=== PATIENT | female | born 1935 | race African-American/Black ===

== ENCOUNTER → 2020-10-25 13:58 | Outpatient (CLI) | payer MEDICARE, OTHER, MEDICAID, SELFPAY ==
[2020-10-26 13:12] LABS: Covid-19 Nasal PCR Sendout Lex NOT DETECTED
== END ==
PROVIDERS: Visit Provider Family Medicine
DX: Z03.818 Encounter for observation for suspected exposure to other biological agents ruled out (principal)
CPT/HCPCS: U0004

== ENCOUNTER 2020-11-17 01:00 | Inpatient (IN) | payer MEDICARE, OTHER, MEDICAID, SELFPAY ==
[2020-11-17] VITALS (20 sets, daily range): BP systolic 114–204; BP diastolic 38–85; PULSE 69–86; RESP 16–24; TEMP 35.9–38.1; O2SAT 72–99; BMI 25.4; BMI 24.8; BMI 25.0
--- NOTE | 2020-11-17 01:33 | ECG_ITS ---
APPROVED REPORT Exam: Resting ECG HR:69 bpm ECG Measurements Heart Rate 69 AXES SD 176 P 75 QRSd 78 QRS -26 QT 404 T 26 QTc 432 Conclusion Normal sinus rhythm Nonspecific T wave abnormality Abnormal ECG Electronically signed by : Amaury Ritter, 11/17/2020 07:16:46
--- NOTE | 2020-11-17 01:33 | XR_ITS ---
PROCEDURE: XR CHEST PORTABLE CLINICAL HISTORY: SOB Shortness of breath COMPARISON: No exams were available for comparison FINDINGS: Cardiomegaly without failure. Patchy increased density is present in the right upper and right lower lobe consistent with pneumonia. Left lung is clear. Old left humeral neck fracture IMPRESSION: Right upper and right lower lobe pneumonia Dictated by: Shad Keating MD 11/17/2020 05:56 Shad Keating MD in [place] 11/17/2020 05:56
--- NOTE | 2020-11-17 01:36 | PC.NURSE ---
Patient arrived via EMS to Trauma 4, assessmant complete. #16 left AC, Labs obtained. #16 catheter inserted U/A obtined. o2 at 2 liters VS stable side rails up x 2
--- NOTE | 2020-11-17 01:51 | HMH.EDSOB ---
ED Disposition Clinical Impression: HCAP (healthcare-associated pneumonia), COVID-19 virus detected, Renal insufficiency, Elevated troponin HTN (hypertension) Qualifiers: Hypertension type: unspecified Qualified Code(s): I10 - Essential (primary) hypertension Disposition: Admitted As Inpatient Condition on Discharge: Serious Referrals: Eyal Gomez [Primary Care Provider] - - Critical Care Critical Care Time: No Attestation: On , the high probability of a clinically significant, sudden or life threatening deterioration of the following system(s) required my full and direct attention, intervention and personal management. The time I documented below is in addition to time spent performing reported procedures but includes the following listed in this critical care notation. Medical Decision Making - Medical Records Medical records reviewed: Yes: I reviewed the patient's medical records. - Chao Inquiry Pt receiving controlled substance: No Vital Signs: 11/17/20 01:01 11/17/20 01:02 11/17/20 01:31 Temperature 99 F 99.1 F Temperature Source Oral Oral Pulse Rate [Right Brachial] 72 73 74 Respiratory Rate 20 18 20 Blood Pressure [Right Arm] 130/54 L 130/54 L 126/38 L Blood Pressure Mean [Right Arm] 79 79 67 Blood Pressure Source [Right Arm] Automatic Cuff Automatic Cuff Automatic Cuff Blood Pressure Position [Right Arm] Supine Supine Supine 02 Sat by Pulse Oximetry 72 L 85 L 87 L Oxygen Delivery Method Room Air Oxygen Flow Rate (LPM) 11/17/20 02:01 11/17/20 02:31 11/17/20 03:00 Temperature Temperature Source Pulse Rate [Right Brachial] 70 69 86 Respiratory Rate 20 20 18 Blood Pressure [Right Arm] 114/39 L 125/43 L 137/57 L Blood Pressure Mean [Right Arm] 64 70 83 Blood Pressure Source [Right Arm] Automatic Cuff Automatic Cuff Blood Pressure Position [Right Arm] Supine Supine 02 Sat by Pulse Oximetry 87 L 91 L 84 L Oxygen Delivery Method Nasal Cannula Nasal Cannula Venturi Mask Oxygen Flow Rate (LPM) 2 2 11/17/20 03:30 11/17/20 04:00 11/17/20 04:30 Temperature Temperature Source Pulse Rate [Right Brachial] 84 78 78 Respiratory Rate 17 17 16 Blood Pressure [Right Arm] 194/66 H 203/66 H 187/64 H Blood Pressure Mean [Right Arm] 108 111 105 Blood Pressure Source [Right Arm] Automatic Cuff Automatic Cuff Automatic Cuff Blood Pressure Position [Right Arm] Supine Supine Supine 02 Sat by Pulse Oximetry 81 L 97 98 Oxygen Delivery Method Venturi Mask Venturi Mask Venturi Mask Oxygen Flow Rate (LPM) 11/17/20 05:00 11/17/20 05:30 11/17/20 06:00 Temperature Temperature Source Pulse Rate [Right Brachial] 76 78 74 Respiratory Rate 16 17 18 Blood Pressure [Right Arm] 193/72 H 185/64 H 204/66 H Blood Pressure Mean [Right Arm] 112 104 112 Blood Pressure Source [Right Arm] Automatic Cuff Automatic Cuff Automatic Cuff Blood Pressure Position [Right Arm] Supine Supine Supine 02 Sat by Pulse Oximetry 99 98 97 Oxygen Delivery Method Venturi Mask Venturi Mask Venturi Mask Oxygen Flow Rate (LPM) 11/17/20 06:30 Temperature Temperature Source Pulse Rate [Right Brachial] 84 Respiratory Rate 17 Blood Pressure [Right Arm] 201/85 H Blood Pressure Mean [Right Arm] 123 Blood Pressure Source [Right Arm] Automatic Cuff Blood Pressure Position [Right Arm] Supine 02 Sat by Pulse Oximetry 89 L Oxygen Delivery Method Venturi Mask Oxygen Flow Rate (LPM) - Lab Data Lab results reviewed: Yes: I reviewed the patient's lab results. Lab Results 11/17/20 01:10: WBC 13.4 H, RBC 3.75 L, Hgb 10.6 L, Hct 35.3 L, MCV 94.2, MCH 28.4, MCHC 30.1 L, RDW 16.9, Plt Count 339, MPV 8.9, Neut % (Auto) 86.3 H, Lymph % (Auto) 7.3 L, [place] % (Auto) 5.3, Eos % (Auto) 0.5, Baso % (Auto) 0.6, Neut # (Auto) 11.6 H, Lymph # (Auto) 1.0, [place] # (Auto) 0.7, Eos # (Auto) 0.1, Baso # (Auto) 0.1, Total Counted 100, Neutrophils % (Manual) 85 H, Lymphocytes % (Manual) 9 L, Monocytes % (Manual) 6, Platelet Estimate Eli
[2020-11-17 02:02] LABS: Microscopic,Cath URINE MICROSCOPIC (MICROSCOPIC)
[2020-11-17 02:11] LABS: Basophils # 0.1 K/mm3 (0-0.2); Basophils % 0.6 % (0.1-2.0); Eosinophils # 0.1 K/mm3 (0.0-0.4); Eosinophils % 0.5 % (0.1-12.0); Hematocrit 35.3 % (37.0-47.0); Hemoglobin 10.6 g/dL (12.2-16.2); Lymphocytes % 7.3 % (10-50); Mean Corpuscular HGB Conc 30.1 g/dL (31.8-35.4); Mean Corpuscular Hemoglobin 28.4 pg (27.0-31.2); Mean Corpuscular Volume 94.2 fl (81-99); Mean Platelet Volume 8.9 fl (7.4-10.4); Monocytes # 0.7 K/mm3 (0.1-1.0); Monocytes % 5.3 % (1.7-9.3); Neutrophils # 11.6 K/mm3 (1.8-7.8); Neutrophils % 86.3 % (37.0-80.0); Platelet Count 339 K/mm3 (142-424); Red Blood Count 3.75 M/mm3 (4.20-5.40); Red Cell Distribution Width 16.9 % (11.5-17.5); White Blood Count 13.4 K/mm3 (4.8-10.8)
[2020-11-17 02:13] LABS: Alanine Aminotransferase 13 U/L (12-78); Albumin Level 3.7 g/dl (3.5-5.0); Albumin/Globulin Ratio 1.2 (1.1-1.8); Alkaline Phosphatase 48 U/L (38-126); Anion Gap 13.6 mEq/L (5-15); Aspartate Amino Transferase 50 U/L (14-36); Bilirubin,Total 0.7 mg/dl (0.2-1.3); Blood Urea Nitrogen 34 mg/dl (7-17); Carbon Dioxide 26 mmol/L (22.0-30.0); Chloride 102 mmol/L (98-107); Creatinine Clearance Estimated 20 mL/min (50-200); Estimated Glomerular Filt Rate 24 ml/min (>60); GFR (African American) 29 ML/MIN (>60); Globulin 3.2 g/dL (1.3-3.2); Glucose 77 mg/dl (74-100); Potassium 4.6 mmoL/L (3.5-5.1); Sodium 137 mmol/L (136-145); Total Protein,Serum 6.9 g/dl (6.3-8.2)
[2020-11-17 02:14] LABS: Appearance,Urine/Cath CLEAR (Clear); Bilirubin,Cath Negative (Negative); Blood, Urine/Cath TRACE-I (Negative); Color,Urine/Cath YELLOW (Yellow); Glucose,Urine/Cath (UA) Negative (Negative); Ketones,Urine/Cath TRACE (Negative); Lactic Acid 0.9 mmol/L (0.7-2.1); Leukocyte Esterase,Cath Negative (Negative); Nitrate,Cath Negative (Negative); PH,Urine/Cath 5.5 (5.0-8.5); Protein,Urine/Cath 2+ (Negative); Specific Gravity, Urine/Cath >= 1.030 (1.005-1.030); Urobilinogen,Cath 0.2 EU/dl (0.2)
[2020-11-17 02:18] LABS: MANUAL DIFFERENTIAL MANUAL DIFFERENTIAL (MANUAL DIFF)
[2020-11-17 02:23] LABS: NT Pro Brain Natriuretic Pep. 2610 pg/mL (0-450)
[2020-11-17 02:26] LABS: Troponin I 0.55 ng/ml (0.00-0.034)
[2020-11-17 02:33] LABS: Coronavirus 19 IgG Antibody Negative (Negative); Coronavirus 19 IgM Antibody Negative (Negative)
[2020-11-17 02:42] LABS: WBC,Urine/Cath Occasional #/hpf (0-3)
[2020-11-17 02:43] LABS: Amorphous Sediment,Ur/Cath 1+ /lpf; Bacteria,Urine/Cath 1+ /lpf
--- NOTE | 2020-11-17 02:47 | CT_ITS ---
PROCEDURE: CT CHEST WO CON De the CLINICAL INDICATION: shortness of breath COMPARISON: No exams were available for comparison TECHNIQUE: Axial images obtained with sagittal and coronal reformats. All CT scans at the facility use one or more dose reduction, viz: automated exposure control, ma/kV adjustment per patient size (including targeted exams where dose is matched to indication, i.e. head), or iterative reconstruction technique. FINDINGS: There is cardiomegaly. Coronary artery calcifications are present. Dense consolidation is present in both upper and lower lobes right more extensive than left. In the right upper lobe there is a spiculated density at 1.4 cm. There are several cystic areas in the right upper and right lower lobe. No effusions are evident. No acute bony anomalies. IMPRESSION: 1. Extensive bilateral pneumonia. 2. Spiculated nodule right apex measuring 1.4 cm suspicious for neoplasm. Convalescent follow-up suggested Dictated by: Shad Keating MD 11/17/2020 06:07 Shad Keating MD in [place] 11/17/2020 06:07
[2020-11-17 02:54] LABS: ABG Base Excess -5.8 mmol/L (-2.4-2.3); ABG HCO3 19.4 mmhg (22.0-26.0); ABG Oxygen Saturation 82 % (90-100); ABG PCO2 34.2 mmhg (35.0-45.0); ABG PH 7.37 mmol/L (7.35-7.45); ABG TCO2 20.5 mmhg (23-27); Allen's Test Y; Oxygen 3 %
[2020-11-17 02:55] LABS: ABG PO2 48.5 mmhg (80-100); Source R/R
[2020-11-17 03:11] LABS: Lymphocytes % 9 % (10-50); Monocytes % 6 % (2-9); Neutrophils % 85 % (42-76); Total Cells Counted 100
[2020-11-17 03:12] LABS: Ovalocytes 1+; Platelet Estimate Normal; Stomatocytes 1+; Target Cells 1+
--- NOTE | 2020-11-17 03:46 | PC.NURSE ---
pt back from CT
[2020-11-17 04:00] LABS: Adenovirus,PCR Not Detected (NotDetected); Bordetella Pertussis Not Detected (NotDetected); Chlamydophila Pneumoniae, PCR Not Detected (NotDetected); Coronavirus 229E Not Detected (NotDetected); Coronavirus NL63 Not Detected (NotDetected); Coronavirus OC43 Not Detected (NotDetected); Coronovirus HKU1,PCR Not Detected (NotDetected); Human Metapneumovirus Not Detected (NotDetected); Influenza A, PCR Not Detected (NotDetected); Influenza AH1, 2009 Not Detected (NotDetected); Influenza AH1, PCR Not Detected (NotDetected); Influenza AH3,PCR Not Detected (NotDetected); Influenza B, PCR Not Detected (NotDetected); Mycoplasma Pneumoniae, PCR Not Detected (NotDetected); Parainfluenza 1, PCR Not Detected (NotDetected); Parainfluenza 2, PCR Not Detected (NotDetected); Parainfluenza 3, PCR Not Detected (NotDetected); Parainfluenza 4, PCR Not Detected (NotDetected); Respiratory Syncytial Virus Not Detected (NotDetected); Rhinovirus/Enterovirus Not Detected (NotDetected)
[2020-11-17 05:47] LABS: Coronavirus 19, PCR Detected (NotDetected)
[2020-11-17 05:51] LABS: Troponin I 0.44 ng/ml (0.00-0.034)
--- NOTE | 2020-11-17 07:36 | PC.NURSE ---
urine output 1500cc
--- NOTE | 2020-11-17 07:42 | PC.NURSE ---
report called to moni marcos
--- NOTE | 2020-11-17 08:45 | HMH.HP ---
*Admission Date: 11/17/20 <Chely Torres 11/17/20 08:51> *Chief complaint: shortness of breath <Chely Torres 11/17/20 09:29> *History of present illness: Ms. Barcenas is an 85yo female who was transported from [facility] with low oxygen saturations and fever. She had a covid test pending at the [facility] but was tested upon presentation to the ER and found to have Covid along with pneumonia. Her white blood cell count was elevated, her troponins were elevated as was her BNP. She had renal insufficiency. Her chest CT showed extensive bilateral pneumonia and a nodule in the right apex suspicious for neoplasm. She was started on levaquin and given dexamethasone and lasix in the ER. She was admitted for further evaluation and treatment. <Chely Torres 11/17/20 09:29> [facility] History I have reviewed the patient's past medical history: Yes <Chely Torres 11/17/20 08:51> Medical History: Denies:: Cancer, Diabetes Mellitus Type 1, Diabetes Mellitus Type 2, Hypertension, MRSA <Chely Torres 11/17/20 09:29> *Have you ever received a pneumonia vaccine?: Yes <Chely Torres 11/17/20 08:51> *Have you received a flu vaccine this season?: No <Chely Torres 11/17/20 08:51> Other Medical History: Reports: Arthritis <Chely Torres 11/17/20 09:29> Amputation: No <Chely Torres 11/17/20 08:51> - *Social History Smoking Status: Former smoker <Chely Torres 11/17/20 09:29> Alcohol Intake: former <Chely Torres 11/17/20 08:51> Alcohol Intake Frequency:: a few times a month <Chely Torres 11/17/20 08:51> *Occupational Status:: unemployed <Chely Torres 11/17/20 08:51> *Travel in the last 8 weeks: None <Chely Torres 11/17/20 08:51> Family Hx:: Cancer <Chely Torres 11/17/20 09:29> Review of Systems - Constitutional Reports fever(s), Reports weakness, Denies chills <BrianChely 11/17/20 09:29> - Eyes Denies blurry vision, Denies double vision <Chely Torres 11/17/20 09:29> - ENT Denies nasal congestion, Denies sore throat <Chely Torres 11/17/20 09:29> - *Cardiovascular Reports shortness of breath, Denies chest pain <Chely Torres 11/17/20 09:29> - *Respiratory Reports cough, Reports shortness of breath <Chely Torres 11/17/20 09:29> - *Gastrointestinal Denies abdominal pain, Denies loose stools, Denies nausea, Denies vomiting <Chely Torres 11/17/20 09:29> - *Genitourinary Denies difficulty urinating, Denies painful urination <Chely Torres 11/17/20 09:29> - *Musculoskeletal Reports joint pain (arthritis) <Chely Torres 11/17/20 09:29> - *Neurologic Reports weakness, Denies dizziness, Denies localized weakness, Denies headache(s), Denies seizure-like activity <Chely Torres 11/17/20 09:29> Meds Home Medications Medication Instructions Recorded Confirmed Type Acetaminophen [Tylenol 500mg 1,000 mg PO Q6 11/17/20 11/17/20 History tablet] Alendronate Sodium [Alendronate 40 mg PO WEEKLY 11/17/20 11/17/20 History 40mg Tablet] Aspirin [Aspirin 81mg chewable 81 mg PO DAILY 11/17/20 11/17/20 History tab] Calcium Carbonate/Vitamin D3 1 each PO BID 11/17/20 11/17/20 History [Calcium 600-Vit D3 400 Tablet] Docusate Sodium [Docusate Sodium 100 mg PO DAILY 11/17/20 11/17/20 History 100mg Cap] Folic Acid [Folic Acid 1mg tablet] 1 mg PO DAILY 11/17/20 11/17/20 History Hydroxychloroquine Sulfate 200 mg PO DAILY 11/17/20 11/17/20 History [Plaquenil 200mg tablet] Lactulose [Lactulose 20gm/30ml 15 ml PO DAILY 11/17/20 11/17/20 History Oral Soln] Loratadine [Claritin 10mg 10 mg PO DAILY 11/17/20 11/17/20 History Tablet] Losartan Potassium 25 mg PO DAILY 11/17/20 11/17/20 History Omeprazole [Omeprazole 40mg 40 mg PO DAILY 11/17/20 11/17/20 History Capsule] Potassium Chloride 10 meq PO DAILY 11/17/20 11/17/20 History hydroCHLOROthiazide [HCTZ 25mg 25 mg PO DAILY 11/17/20 11/17/20 History tab]
--- NOTE | 2020-11-17 09:52 | PC.NURSE ---
patient placed on 4 l nasal cannula sating 91-92%. will continue to monitor. and wean as appropriate.
--- NOTE | 2020-11-17 10:35 | SW/DCPLANNER ---
Addendum entered by Meli Partida 11/23/20 07:02: PATIENT REMAINS IN THE COVID UNIT AND IS ON BIPAP... SHE DOES HAVE A BED SECURED AT [facility].. PATIENT NOT CURRENTLY READY FOR ANY DISPOSITION AT THIS TIME... WILL KEEP IN TOUCH WITH THE FACILITY AND LET THEM KNOW WHEN SHE IS READY TO COME BACK.. Original Note: This patient currently resides at [facility]. I have spoke with Omar from [facility] and she has stated this patient is SNF level of care. If patient is ready over the holiday or weekend they can accept this patient back. I will continue to follow up with Omar from [facility].
--- NOTE | 2020-11-17 10:51 | P.CONPHA_ITS ---
[facility] Pharmacy VTE Monitoring - Patient Demographics Admission date: 11/17/20 Report Date: 11/17/20 Time: 10:51 Allergies/Adverse Reactions: Patient Allergies Penicillins Allergy (Severe, Verified 11/17/20 01:28) Rash procainamide Allergy (Intermediate, Verified 11/17/20 01:30) Rash Height: 1.55 m Weight: 59.619 kg Patient Problems: Current Active Problems HCAP (healthcare-associated pneumonia) (Acute) COVID-19 virus detected (Acute) Renal insufficiency (Chronic) Elevated troponin (Acute) HTN (hypertension) (Chronic) - VTE Risk Labs: VTE Related Lab Results Hgb 10.6 g/dL (12.2-16.2) L 11/17/20 01:10 Hct 35.3 % (37.0-47.0) L 11/17/20 01:10 Plt Count 339 K/mm3 (142-424) 11/17/20 01:10 BUN 34 mg/dl (7-17) H 11/17/20 01:10 Creatinine 2.00 mg/dl (0.52-1.04) H 11/17/20 01:10 Estimated Creat Clear 20 mL/min (50-200) 11/17/20 01:10 Was VTE Risk Assessment Performed: Yes VTE Score: 3 VTE Risk Level: Low Risk - Prophylaxis VTE Prophylaxis Ordered?: Yes Types of VTE Prophylaxis: Pharmacological Pharmacologic Type: Enoxaparin
--- NOTE | 2020-11-17 11:39 | HMH.PHAINT ---
MEDICATION RECONCILIATION COMPLETED ON PATIENT USING MAR FORM SHELTER. -SATYA MOSQUERA, MACARENAD
--- NOTE | 2020-11-17 11:43 | PC.NURSE ---
remdesivir finished. flushed with 30ml of ns via pump. tolerated infusion well
--- NOTE | 2020-11-17 13:51 | PC.NURSE ---
when patient took ascorbic acid pill she got nauseated and puked the pill and water back up
--- NOTE | 2020-11-17 18:44 | PC.NURSE ---
No acute changes since taking pt at approx 1300. Pt alert and oriented and has had no c/o's. Continues on 4 L NC. Have placed call to MIS x 2 in RE to fixing pts phone in room, as it will ring, but phone won't answer. CB in reach. IV in the LAC infiltrated and was changed to a 20 gauge in the RFA with NS at 100 ml/hr. Remains safe. Will cont to mx. VSS
[2020-11-18] VITALS (13 sets, daily range): BP systolic 110–145; BP diastolic 43–80; PULSE 66–96; RESP 16–20; TEMP 35.9–37.2; O2SAT 90–98; BMI 24.5
--- NOTE | 2020-11-18 05:58 | PC.NURSE ---
Pt has been A&O x4 and has slept on and off through the night. At the start of shift, pt was on 4L NC with sats at 90. Around 2129, pt began to need an increase in O2 and Juan Pablo MEDEL was notified. He ordered nebs and gave a sat goal of 88. Pt began to further desat with O2 sats in the mid to low 80s, pt was unsymptomatic and reported no SOA. RT was notified and placed pt on the Vapotherm, with 30L at 90%. O2 sats improved to low 90s and maintained through the night. Lung sounds were diminished with fine crackles in lower lobes. Abd was soft and nontender with bowel sounds in all four quadrants. VSS, call light in reach. No concerns at this time.
[2020-11-18 06:34] LABS: Chloride 103 mmol/L (98-107); Sodium 137 mmol/L (136-145)
[2020-11-18 06:35] LABS: Potassium 3.8 mmoL/L (3.5-5.1)
[2020-11-18 06:37] LABS: Blood Urea Nitrogen 42 mg/dl (7-17); Creatinine Clearance Estimated 26 mL/min (50-200); Estimated Glomerular Filt Rate 33 ml/min (>60); GFR (African American) 40 ML/MIN (>60)
[2020-11-18 06:38] LABS: Anion Gap 14.8 mEq/L (5-15); Carbon Dioxide 23 mmol/L (22.0-30.0); Glucose 114 mg/dl (74-100)
[2020-11-18 06:48] LABS: Basophils # 0.1 K/mm3 (0-0.2); Basophils % 0.2 % (0.1-2.0); Hematocrit 30.9 % (37.0-47.0); Hemoglobin 9.6 g/dL (12.2-16.2); Lymphocytes # 0.8 K/mm3 (0.7-4.5); Lymphocytes % 4.2 % (10-50); Mean Corpuscular HGB Conc 30.9 g/dL (31.8-35.4); Mean Corpuscular Volume 93.7 fl (81-99); Mean Platelet Volume 9.5 fl (7.4-10.4); Monocytes # 0.9 K/mm3 (0.1-1.0); Monocytes % 4.8 % (1.7-9.3); Neutrophils # 17.1 K/mm3 (1.8-7.8); Neutrophils % 90.8 % (37.0-80.0); Platelet Count 363 K/mm3 (142-424); Red Blood Count 3.29 M/mm3 (4.20-5.40); Red Cell Distribution Width 16.9 % (11.5-17.5); White Blood Count 18.8 K/mm3 (4.8-10.8)
[2020-11-18 06:52] LABS: MANUAL DIFFERENTIAL MANUAL DIFFERENTIAL (MANUAL DIFF)
[2020-11-18 07:35] LABS: Calcium 7.8 mg/dl (8.4-10.2)
[2020-11-18 07:44] LABS: Lymphocytes % 6 % (10-50); Monocytes % 5 % (2-9); Neutrophils % 89 % (42-76); Platelet Estimate Normal; RBC Morphology Normal; Total Cells Counted 100
--- NOTE | 2020-11-18 15:22 | PC.NURSE ---
PATIENT A&O X2. PATIENT KNOWS NAME AND . PATIENT LUNGS: COARSE CRACKLES HEARD, PULSES EQUAL. PATIENT SHOWED CONFUSION ON DATE AND WHERE SHE WAS. PATIENT HAS HAD WATERY STOOLS. PATIENT HAS REFUSED TO EAT HER MEALS. THIS RN EDUCATED PATIENT THE IMPORTANCE OF EATING AND DRINKING FOR NUTRITION SUPPORT. PATIENT STATED THAT SHE CAN NOT DRINK COLD THINGS. THIS RN OFFERED HER ROOM TEMP WATER AND PATIENT WAS ABLE TO DRINK IT. NO NEW CONCERNS AT THIS TIME.
--- NOTE | 2020-11-18 18:41 | PC.NURSE ---
PATIENT O2 STATS DROPPED TO 78, THIS RN AND VLADIMIR SALMERON WENT TO PATIENT'S ROOM TO ASSES. PATIENT HAD TAKEN OFF HER VAPOTHERM. THIS RN EDUCATED PATIENT IN REGARDS TO THE IMPORTANCE OF HER KEEPING THE VAPOTHERM IN HER NOSE. PATIENT STATED, IT IS BOTHERING ME. PATIENT VERBALIZED AN UNDERSTANDING AND O2 WAS 93%.
--- NOTE | 2020-11-18 19:02 | PC.NURSE ---
THIS RN WAS INFORMED THAT CARDIAC STRIPS ARE NOT PULLING TO THE MAIN MONITOR AND UNABLE TO PRINT. THIS RN ALONG WITH FAVIOLA GILBERT SHOOTED AND WERE ABLE TO PRINT A STRIP AT 1858.
[2020-11-19] VITALS (14 sets, daily range): BP systolic 120–148; BP diastolic 47–66; PULSE 70–90; RESP 18–24; TEMP 36.7–37.4; O2SAT 85–96; BMI 23.8
--- NOTE | 2020-11-19 03:15 | PC.NURSE ---
No acute changes this shift. Pt has slept well. Has not c/o any soa or discomfort. Pt remains on vapotherm 30 L @ 75% with sats of low 90s. Pt has had some periods of desaturation while sleeping as low as 87% at times, but quickly recovers after being awaken by staff. VSS. Pt has remained afebrile this shift. Medication administered per jan. Pt refused bath this shift. Pt turned and repositioned as permitted by pt. She occasionally refuses. No other concerns at this time. Will continue to monitor.
[2020-11-19 05:48] LABS: Basophils # 0.1 K/mm3 (0-0.2); Basophils % 0.4 % (0.1-2.0); Hematocrit 30.9 % (37.0-47.0); Hemoglobin 9.8 g/dL (12.2-16.2); Lymphocytes # 0.8 K/mm3 (0.7-4.5); Lymphocytes % 4.5 % (10-50); Mean Corpuscular HGB Conc 31.7 g/dL (31.8-35.4); Mean Corpuscular Hemoglobin 28.5 pg (27.0-31.2); Mean Corpuscular Volume 89.9 fl (81-99); Mean Platelet Volume 9.3 fl (7.4-10.4); Monocytes % 5.5 % (1.7-9.3); Neutrophils # 15.4 K/mm3 (1.8-7.8); Neutrophils % 89.6 % (37.0-80.0); Platelet Count 383 K/mm3 (142-424); Red Blood Count 3.44 M/mm3 (4.20-5.40); Red Cell Distribution Width 17.1 % (11.5-17.5); White Blood Count 17.2 K/mm3 (4.8-10.8)
[2020-11-19 05:51] LABS: MANUAL DIFFERENTIAL MANUAL DIFFERENTIAL (MANUAL DIFF)
[2020-11-19 05:52] LABS: Chloride 106 mmol/L (98-107); Potassium 4.1 mmoL/L (3.5-5.1); Sodium 137 mmol/L (136-145)
[2020-11-19 05:55] LABS: Anion Gap 9.1 mEq/L (5-15); Blood Urea Nitrogen 44 mg/dl (7-17); Carbon Dioxide 26 mmol/L (22.0-30.0); Creatinine Clearance Estimated 32 mL/min (50-200); Estimated Glomerular Filt Rate 43 ml/min (>60); GFR (African American) 52 ML/MIN (>60)
[2020-11-19 05:56] LABS: Calcium 7.7 mg/dl (8.4-10.2); Glucose 118 mg/dl (74-100)
[2020-11-19 07:13] LABS: Lymphocytes % 7 % (10-50); Monocytes % 3 % (2-9); Neutrophils % 88 % (42-76); Platelet Estimate Normal; RBC Morphology Normal; Total Cells Counted 100
--- NOTE | 2020-11-19 08:43 | HMH.ACPN2 ---
Internal Medicine - PN: Subj *Date: 11/19/20 *Time: 09:06 Interval history: Patient with no new complaints today. Exam Vital signs and Labs for Last 24 Hours: Temp Pulse Resp BP Pulse Ox 98.2 F 82 23 125/47 L 93 L 11/19/20 08:00 11/19/20 08:00 11/19/20 08:00 11/19/20 08:00 11/19/20 08:00 Laboratory Results - last 24 hr 11/19/20 05:10: WBC 17.2 H, RBC 3.44 L, Hgb 9.8 L, Hct 30.9 L, MCV 89.9, MCH 28.5, MCHC 31.7 L, RDW 17.1, Plt Count 383, MPV 9.3, Neut % (Auto) 89.6 H, Lymph % (Auto) 4.5 L, [place] % (Auto) 5.5, Eos % (Auto) 0.0 L, Baso % (Auto) 0.4, Neut # (Auto) 15.4 H, Lymph # (Auto) 0.8, [place] # (Auto) 1.0, Eos # (Auto) 0.0, Baso # (Auto) 0.1, Total Counted 100, Neutrophils % (Manual) 88 H, Band Neutrophils % 2.0, Lymphocytes % (Manual) 7 L, Monocytes % (Manual) 3, Platelet Estimate Normal, RBC Morphology Normal 11/19/20 05:10: Sodium 137, Potassium 4.1, Chloride 106, Carbon Dioxide 26, Anion Gap 9.1, BUN 44 H, Creatinine 1.20 H, Estimated Creat Clear 32, Estimated GFR 43 L, Est GFR ( Amer) 52 L D, Glucose 118 H, Calcium 7.7 L Vital Signs - 24 hr 11/18/20 11:28 11/18/20 14:00 11/18/20 15:35 Temperature 97.5 F L 97.7 F Pulse Rate 80 Pulse Rate [Right Brachial] 70 66 Respiratory Rate 20 18 Blood Pressure [Right Arm] 115/64 129/80 02 Sat by Pulse Oximetry 93 L 92 L 11/18/20 19:01 11/18/20 19:04 11/18/20 19:23 Temperature 97.6 F Pulse Rate 70 Pulse Rate [Right Brachial] 77 Respiratory Rate 16 Blood Pressure [Right Arm] 112/49 L 02 Sat by Pulse Oximetry 94 L 90 L 11/18/20 20:00 11/18/20 23:49 11/19/20 00:00 Temperature 97.5 F L Pulse Rate 70 70 Pulse Rate [Right Brachial] 77 Respiratory Rate 18 Blood Pressure [Right Arm] 121/43 L 02 Sat by Pulse Oximetry 90 L 92 L 11/19/20 03:33 11/19/20 04:00 11/19/20 07:20 Temperature 98.0 F Pulse Rate 70 80 Pulse Rate [Right Brachial] 81 Respiratory Rate 20 Blood Pressure [Right Arm] 120/66 02 Sat by Pulse Oximetry 95 92 L 11/19/20 08:00 Temperature 98.2 F Pulse Rate Pulse Rate [Right Brachial] 82 Respiratory Rate 23 Blood Pressure [Right Arm] 125/47 L 02 Sat by Pulse Oximetry 93 L I & O for Last 24 hours: Intake & Output 11/16/20 11/17/20 11/18/20 11/19/20 23:59 23:59 23:59 23:59 Intake Total 480 / 480 200 / 200 Output Total 400 / 650 1051 / 1051 325 / 325 Balance 80 / -170 -851 / -851 -325 / -325 Weight 132 lb 4.438 oz 130 lb 4.8 oz 126 lb 8 oz Microbiology Reports for the Last 24 Hours: Microbiology 11/17/20 01:10 Blood Blood Culture - Preliminary NO GROWTH AFTER 48 HOURS 11/17/20 01:10 Blood Blood Culture - Preliminary NO GROWTH AFTER 48 HOURS - Constitutional no acute distress (conversant) - *Routine HEENT Exam Head: Present: normocephalic Eye: Present: EOMI, PERRL ENT: Present: mucous membranes moist - *Routine Neck Exam Present: supple. Absent: lymphadenopathy - *Routine Respiratory Exam Present: crackles (bilateral) - *Routine Cardiovascular Exam Present: RRR - *Routine Abdominal Exam Present: soft, normoactive bowel sounds. Absent: tenderness - *Routine Extremities Exam Absent: cyanosis, clubbing, edema - *Routine Skin Exam Present: warm. Absent: rash - *Routine Neurological Exam Present: alert, oriented X3 Assessment and Plan (1) COVID-19 virus detected Status: Acute Category: Medical Code(s): U07.1 - COVID-19 (2) Elevated troponin Status: Acute Category: Medical Code(s): R77.8 - Other specified abnormalities of plasma proteins (3) HCAP (healthcare-associated pneumonia) Status: Acute Category: Medical Code(s): J18.9 - Pneumonia, unspecified organism (4) HTN (hypertension) Status: Chronic Qualifiers: Hypertension type: unspecified Qualified Code(s): I10 - Essential (primary) hypertension Category: Medical Code(s): I10 - Essential
--- NOTE | 2020-11-19 11:50 | PC.NURSE ---
Patient had a 13 beat run of vtach. Notified . No changes recommended at this time. Will continue to monitor.
--- NOTE | 2020-11-19 18:02 | DIET.NUTRFU ---
PO intakes 25% with fair acceptance supplements, 4# weight loss 24 hrs. With improvement renal labs. No edema noted, pt being given lasix and lower rate IVF. Diet partially liberalized from low sodium to no added salt, TID protein supplements being continued. Pt may have additional supplements, snacks by request/RN offer. Cueing/encouragement with meals appreciated.
--- NOTE | 2020-11-19 18:15 | PC.NURSE ---
Patient is resting comfortably in bed. Patient has had a good day with few complaints. Neurologically patient is intact to self but unsure of date. Respiratory: patient remains on the vapotherm at 85% on 30l. Educated on incentive spirometer, but refused to use. States she already knows how to use one, patient does have a dry nonproductive cough. Cardiovascular: patients blood pressure has been hemodynamically stable, with current reading being 103/51 with a map of 80. Heartrate is 84, ns with occassionaly pac's and pvc's. She had a 17 beat run of vtach earlier today, notified. No further issues with arrhythmias. Patient was asymptomatic during episode. GI rahman patient has had a diminished appetite, eating less than 25% of her meals, patient is not satisfied with the food. Patient refuses to take ascorbic acid, states that she takes enough bitter pills and sure doesnt' want that one as she doesn't see the point of it. : Patient has a hancock catheter. Was given lasix po today, responded with a total urine output of 825cc. Urine is clear and yellow. Skin: Patient has no skin issues. Was given a bedbath today. IV is intact, NS continues at 50. Will continue to monitor patient.
--- NOTE | 2020-11-19 18:47 | PC.NURSE ---
RT increased pt vapotherm to 40L 100% pt sat was 86-90% after her bath and using IS. current o2 sat is 90%. pt requested to lay flat, but did agree to being turned to left side.
[2020-11-20] VITALS (10 sets, daily range): BP systolic 93–136; BP diastolic 44–91; PULSE 60–100; RESP 19–24; TEMP 36.3–37.1; O2SAT 87–94; BMI 23.8
--- NOTE | 2020-11-20 04:54 | PC.NURSE ---
Pt is A&O x4 and slept on and off through the night. She remained on the vapotherm at 40LPM, 100% O2 though the night with sats in the low 90s with no SOA. Lungs were diminished with crackles bilaterally in the lower bases. No c/o pain or discomfort. Pt had several periods of desatuation to 85-87% SpO2 but was able to recover on her own. UOP was adequate, abd soft and non-tender, bowel sounds positive in all quadrants. Pt turned as requested. VSS, call light in reach, no concerns at this time.
--- NOTE | 2020-11-20 06:39 | PC.NURSE ---
Pt care has been supervised by Primary RN, Louise Cade.
--- NOTE | 2020-11-20 08:49 | HMH.ACPN2 ---
Internal Medicine - PN: Subj *Date: 11/20/20 *Time: 08:49 Interval history: Patient with no new complaints today. States she does feel a little constipated. Exam Vital signs and Labs for Last 24 Hours: Temp Pulse Resp BP Pulse Ox 97.9 F 92 H 24 134/52 L 94 L 11/20/20 08:00 11/20/20 08:00 11/20/20 08:00 11/20/20 08:00 11/20/20 08:00 Vital Signs - 24 hr 11/19/20 11:49 11/19/20 12:00 11/19/20 13:11 Temperature 98.5 F Pulse Rate 70 80 80 Pulse Rate [Right Brachial] 85 Respiratory Rate 20 Blood Pressure [Right Arm] 129/59 L 02 Sat by Pulse Oximetry 94 L 92 L 11/19/20 15:42 11/19/20 16:00 11/19/20 18:15 Temperature 99.4 F Pulse Rate 80 84 Pulse Rate [Right Brachial] 84 Respiratory Rate 24 Blood Pressure [Right Arm] 148/52 H 02 Sat by Pulse Oximetry 88 L 85 L 11/19/20 18:38 11/19/20 20:00 11/19/20 23:51 Temperature 98.1 F Pulse Rate 90 Pulse Rate [Right Brachial] 79 Respiratory Rate 18 Blood Pressure [Right Arm] 131/66 02 Sat by Pulse Oximetry 88 L 96 91 L 11/20/20 00:00 11/20/20 04:00 11/20/20 06:00 Temperature 98.1 F 97.9 F Pulse Rate 90 100 H 86 Pulse Rate [Right Brachial] 85 82 Respiratory Rate 19 21 Blood Pressure [Right Arm] 118/53 L 136/46 L 02 Sat by Pulse Oximetry 93 L 88 L 11/20/20 08:00 Temperature 97.9 F Pulse Rate Pulse Rate [Right Brachial] 92 H Respiratory Rate 24 Blood Pressure [Right Arm] 134/52 L 02 Sat by Pulse Oximetry 94 L I & O for Last 24 hours: Intake & Output 11/17/20 11/18/20 11/19/20 11/20/20 23:59 23:59 23:59 23:59 Intake Total 480 / 480 200 / 200 600 / 700 340 / 340 Output Total 400 / 650 1051 / 1051 1150 / 1150 675 / 675 Balance 80 / -170 -851 / -851 -550 / -450 -335 / -335 Weight 132 lb 4.438 oz 130 lb 4.8 oz 126 lb 8 oz 126 lb 5 oz - Constitutional no acute distress - *Routine HEENT Exam Head: Present: normocephalic Eye: Present: EOMI, PERRL ENT: Present: mucous membranes moist - *Routine Neck Exam Present: supple. Absent: lymphadenopathy - *Routine Respiratory Exam Present: crackles (bibasilar) - *Routine Cardiovascular Exam Present: RRR - *Routine Abdominal Exam Present: soft, normoactive bowel sounds. Absent: tenderness - *Routine Extremities Exam Absent: cyanosis, clubbing, edema - *Routine Skin Exam Present: warm. Absent: rash - *Routine Neurological Exam Present: alert, oriented X3 Assessment and Plan (1) COVID-19 virus detected Status: Acute Category: Medical Code(s): U07.1 - COVID-19 (2) Elevated troponin Status: Acute Category: Medical Code(s): R77.8 - Other specified abnormalities of plasma proteins (3) HCAP (healthcare-associated pneumonia) Status: Acute Category: Medical Code(s): J18.9 - Pneumonia, unspecified organism (4) HTN (hypertension) Status: Chronic Qualifiers: Hypertension type: unspecified Qualified Code(s): I10 - Essential (primary) hypertension Category: Medical Code(s): I10 - Essential (primary) hypertension (5) Renal insufficiency Status: Chronic Category: Medical Code(s): N28.9 - Disorder of kidney and ureter, unspecified - Assessment and plan all Dx Assessment and Plan for all problems:: Sats were a little low overnight. FiO2 increased to 100%. Will resume Miralax today.
--- NOTE | 2020-11-20 16:16 | PC.NURSE ---
A&OX4. PT HAS TOLERATED VAPOTHERM FAIRLY WELL THIS SHIFT. RESPIRATIONS REGULAR AND UNLABORED. FINE CRACKLES AND DIMINISHED LUNG SOUNDS NOTED THROUGHOUT. OCCASIONAL NONPRODUCTIVE COUGH NOTED. HAND DATA ARCHITECT EQUAL. +2 PULSES NOTED THROUGHOUT. NO EDEMA NOTED. ACTIVE BOWEL SOUNDS HEARD IN ALL 4 QUADRANTS. SOFT AND NONTENDER ABDOMEN. NO BM THUS FA. PT DID RECEIVE 1 DOSE OF MIRALAX. NO REPORTS OF PAIN OR SOB THUS FAR. PT REPORTED NAUSEA ONCE AND RECEIVED ZOFRAN. ON REASSESSMENT, PT STATED NAUSEA HAD EASED. PT HAS REMAINED IN CONTACT AND [employer] THROUGHOUT SHIFT. PT HAS REFUSED ASCORBIC ACID DUE TO STATING IT IS BITTER AND UPSETS HER STOMACH. NS INFUSING AT 50ML/HR. PT HAS REMAINED AFEBRILE. PT RECEIVED REMDESIVIR THIS SHIFT AND TOLERATED WELL. PT SLEPT MOST OF THE AFTERNOON. PT IS CURRENTLY SLEEPING WITH CALL LIGHT WITHIN REACH. BED IN LOWEST POSITION. BED ALARM ON TO PROMOTE SAFETY. VSS. WILL CONTINUE TO MONITOR.
[2020-11-21] VITALS (17 sets, daily range): BP systolic 111–142; BP diastolic 45–60; PULSE 69–103; RESP 12–31; TEMP 35.8–37.8; O2SAT 81–96; BMI 23.6
--- NOTE | 2020-11-21 03:41 | PC.NURSE ---
Pt is A&Ox4. Lung sounds are diminished t/o per auscultation. Pt continues to be on vapotherm at 40L and 100% fio2. Pt would have episodes of desaturating as low as 54% due to taking off vapotherm. Pt would take approx 10 min to recover in the upper 80's. Nonrebreather was added per RT this shift, along with vapotherm. Pt is currently satting @ 90% with both in place. Active bowel sounds in all 4 quads. No BM noted this shift. Chappell catheter remains patent and in place and is draining cloudy, dark yellow urine with a foul odor. No other acute changes or concerns at this time. Will continue to monitor.
[2020-11-21 06:03] LABS: Chloride 108 mmol/L (98-107); Sodium 141 mmol/L (136-145)
[2020-11-21 06:04] LABS: Basophils # 0.1 K/mm3 (0-0.2); Basophils % 0.7 % (0.1-2.0); Hematocrit 34.1 % (37.0-47.0); Hemoglobin 10.4 g/dL (12.2-16.2); Lymphocytes # 0.9 K/mm3 (0.7-4.5); Lymphocytes % 4.6 % (10-50); Mean Corpuscular HGB Conc 30.3 g/dL (31.8-35.4); Mean Corpuscular Hemoglobin 28.3 pg (27.0-31.2); Mean Corpuscular Volume 93.2 fl (81-99); Mean Platelet Volume 9.7 fl (7.4-10.4); Monocytes # 1.3 K/mm3 (0.1-1.0); Neutrophils # 16.3 K/mm3 (1.8-7.8); Neutrophils % 87.6 % (37.0-80.0); Platelet Count 428 K/mm3 (142-424); Red Blood Count 3.66 M/mm3 (4.20-5.40); Red Cell Distribution Width 17.1 % (11.5-17.5); White Blood Count 18.6 K/mm3 (4.8-10.8)
[2020-11-21 06:06] LABS: Blood Urea Nitrogen 39 mg/dl (7-17); Creatinine Clearance Estimated 31 mL/min (50-200); Estimated Glomerular Filt Rate 43 ml/min (>60); GFR (African American) 52 ML/MIN (>60)
[2020-11-21 06:07] LABS: Calcium 7.7 mg/dl (8.4-10.2); Carbon Dioxide 25 mmol/L (22.0-30.0); Glucose 92 mg/dl (74-100); MANUAL DIFFERENTIAL MANUAL DIFFERENTIAL (MANUAL DIFF)
[2020-11-21 06:25] LABS: Lymphocytes % 3 % (10-50); Monocytes % 1 % (2-9); Neutrophils % 88 % (42-76); Total Cells Counted 100
[2020-11-21 06:26] LABS: Anisocytosis 1+; Burr Cells 1+; Hypochromasia 2+; Platelet Estimate Normal; Poikilocytosis 1+
--- NOTE | 2020-11-21 08:34 | HMH.ACPN2 ---
Internal Medicine - PN: Noreen *Date: 11/21/20 *Time: 10:55 Interval history: Patient feels a little worse today, no new complaints. She doesn't like to use of supplemental oxygen. Exam Vital signs and Labs for Last 24 Hours: Temp Pulse Resp BP Pulse Ox 97.9 F 102 H 28 H 125/47 L 82 L 11/21/20 08:00 11/21/20 08:00 11/21/20 08:00 11/21/20 08:00 11/21/20 08:00 Laboratory Results - last 24 hr 11/21/20 04:30: WBC 18.6 H, RBC 3.66 L, Hgb 10.4 L, Hct 34.1 L, MCV 93.2, MCH 28.3, MCHC 30.3 L, RDW 17.1, Plt Count 428 H, MPV 9.7, Neut % (Auto) 87.6 H, Lymph % (Auto) 4.6 L, [place] % (Auto) 7.0, Eos % (Auto) 0.0 L, Baso % (Auto) 0.7, Neut # (Auto) 16.3 H, Lymph # (Auto) 0.9, [place] # (Auto) 1.3 H, Eos # (Auto) 0.0, Baso # (Auto) 0.1, Total Counted 100, Neutrophils % (Manual) 88 H, Band Neutrophils % 8.0, Lymphocytes % (Manual) 3 L, Monocytes % (Manual) 1 L, Platelet Estimate Normal, Hypochromasia 2+, Poikilocytosis 1+, Anisocytosis 1+, Abelino Cells 1+ 11/21/20 04:30: Sodium 141, Potassium 4.0, Chloride 108 H, Carbon Dioxide 25, Anion Gap 12.0, BUN 39 H, Creatinine 1.20 H, Estimated Creat Clear 31, Estimated GFR 43 L, Est GFR ( Amer) 52 L, Glucose 92, Calcium 7.7 L Vital Signs - 24 hr 11/20/20 09:30 11/20/20 12:00 11/20/20 13:15 Temperature 98.7 F Pulse Rate 90 92 H Pulse Rate [Right Brachial] 82 Respiratory Rate 24 Blood Pressure [Right Arm] 135/91 H 02 Sat by Pulse Oximetry 94 L 87 L 94 L 11/20/20 16:00 11/20/20 20:00 11/20/20 21:06 Temperature 98.1 F 97.4 F L Pulse Rate 80 60 89 Pulse Rate [Right Brachial] 73 87 Respiratory Rate 24 24 Blood Pressure [Right Arm] 122/59 L 93/44 L 02 Sat by Pulse Oximetry 87 L 93 L 11/21/20 00:00 11/21/20 03:46 11/21/20 04:00 Temperature 96.9 F L 97.7 F Pulse Rate 70 70 Pulse Rate [Right Brachial] 82 69 Respiratory Rate 18 22 Blood Pressure [Right Arm] 114/45 L 114/55 L 02 Sat by Pulse Oximetry 89 L 92 L 11/21/20 06:35 11/21/20 08:00 Temperature 97.9 F Pulse Rate 88 Pulse Rate [Right Brachial] 102 H Respiratory Rate 28 H Blood Pressure [Right Arm] 125/47 L 02 Sat by Pulse Oximetry 85 L 82 L I & O for Last 24 hours: Intake & Output 11/18/20 11/19/20 11/20/20 11/21/20 23:59 23:59 23:59 23:59 Intake Total 200 / 200 600 / 700 1003 / 1003 796 / 796 Output Total 1051 / 1051 1150 / 1150 1325 / 1325 275 / 275 Balance -851 / -851 -550 / -450 -322 / -322 521 / 521 Weight 130 lb 4.8 oz 126 lb 8 oz 126 lb 5 oz 125 lb 7 oz - Constitutional no acute distress - *Routine HEENT Exam Head: Present: normocephalic Eye: Present: EOMI, PERRL ENT: Present: mucous membranes moist - *Routine Neck Exam Present: supple. Absent: lymphadenopathy - *Routine Respiratory Exam Present: crackles (bilateral). Absent: wheezes - *Routine Cardiovascular Exam Present: RRR - *Routine Abdominal Exam Present: soft, normoactive bowel sounds. Absent: tenderness - *Routine Extremities Exam Absent: cyanosis, clubbing, edema - *Routine Skin Exam Present: warm. Absent: rash - *Routine Neurological Exam Present: alert, oriented X3 Assessment and Plan (1) COVID-19 virus detected Status: Acute Category: Medical Code(s): U07.1 - COVID-19 (2) Elevated troponin Status: Acute Category: Medical Code(s): R77.8 - Other specified abnormalities of plasma proteins (3) HCAP (healthcare-associated pneumonia) Status: Acute Category: Medical Code(s): J18.9 - Pneumonia, unspecified organism (4) HTN (hypertension) Status: Chronic Qualifiers: Hypertension type: unspecified Qualified Code(s): I10 - Essential (primary) hypertension Category: Medical Code(s): I10 - Essential (primary) hypertension (5) Renal insufficiency Status: Chronic Category: Medical Code(s): N28.9 - Disorder of kidney and ureter, unspecified (6) Hypoxia Status: Acute Category: Medical Code(s): R09.02 - Hypoxemia - Assessment and plan
[2020-11-21 09:47] LABS: ABG Base Excess -3.2 mmol/L (-2.4-2.3); ABG HCO3 21.2 mmhg (22.0-26.0); ABG Oxygen Saturation 54 % (90-100); ABG PCO2 32.9 mmhg (35.0-45.0); ABG PH 7.43 mmol/L (7.35-7.45); ABG TCO2 22.2 mmhg (23-27)
[2020-11-21 09:48] LABS: Allen's Test Patient Unable; Oxygen 100 %; Source Right Brachial
[2020-11-21 09:49] LABS: ABG PO2 28.7 mmhg (80-100)
--- NOTE | 2020-11-21 10:52 | XR_ITS ---
PROCEDURE: XR CHEST PORTABLE Referring Doctor: Trent Polk Patient Age:85Y CLINICAL HISTORY: hypoxia, covid pneumonia COMPARISON: CR XR CHEST PORTABLE from 11/17/[address] CHEST WO CON from 11/17/2020 FINDINGS: AP portable near upright CXR. Fair inspiration with diaphragm only down to the anterior fourth-5th rib on right. However the patient did not understand and could not take a deep breath for today's CXR image When compared to 11/17/2020 there has been marked progression of the bilateral infiltrates now prominent perihilar infiltrate with dense central infiltrate bilaterally right more so than left, of these infiltrates now obscure hilar regions and central markings bilaterally... There are additional patchy and streaky areas of infiltrate extending peripherally at the right mid lung and right base as well as left lower lobe retrocardiac region. Presumably this all reflects progression of pneumonic infiltrate but could not exclude CHF is a contributor to this central infiltrate pattern an additional vascular congestion is skull, thus may warrant correlation with BNP. There is additional elevation of the right hemidiaphragm today reflecting the element of atelectasis associated these infiltrates a the RLL RML RUL Cardiomegaly slightly more pronounced today. Cardiac silhouette in part accentuated by the less optimal inspiration today. The no acute chest wall findings but no pneumothorax. Diffuse calcified aortic knob and descending aorta again observed IMPRESSION: . Marked progression of bilateral airspace disease and infiltrates since 11/17/2020 reflecting marked progression of severe bilateral pneumonia The most pronounced dense infiltrates are seen at the perihilar and central lung ramos bilaterally (although airspace here most likely this is due to pneumonia, given this appearance along with along progressive cardiomegaly& mild vascular engorgement, might suggest correlation with BNP). There also of progressive patchy areas peripheral infiltrate-particularly notable at the right mid and lower lung field, as well as retrocardiac region left lung base Dictated by: Beto Lopez MD 11/21/2020 11:16 Beto Lopez MD in [place] 11/21/2020 11:16
--- NOTE | 2020-11-21 11:30 | HMH.PHACONS ---
- Pharmacy Consult Date: 11/21/20 Time: 11:30 Referring provider: DR. BURGOS Reason for Consult:: VANCOMYCIN DOSING Allergies and ADEs:: Allergies Allergy/AdvReac Type Severity Reaction Status Date / Time Penicillins Allergy Severe Rash Verified 11/17/20 01:28 procainamide Allergy Intermediate Rash Verified 11/17/20 01:30 Home Medications:: Home Medications Medication Instructions Recorded Confirmed Type Acetaminophen [Tylenol 500mg 1,000 mg PO HS 11/17/20 11/17/20 History tablet] Alendronate Sodium [Alendronate 40 mg PO WEEKLY 11/17/20 11/17/20 History 40mg Tablet] Aspirin [Aspirin 81mg chewable 81 mg PO DAILY 11/17/20 11/17/20 History tab] Calcium Carbonate/Vitamin D3 1 each PO BID 11/17/20 11/17/20 History [Calcium 600-Vit D3 400 Tablet] Docusate Sodium [Docusate Sodium 100 mg PO DAILY 11/17/20 11/17/20 History 100mg Cap] Folic Acid [Folic Acid 1mg tablet] 1 mg PO DAILY 11/17/20 11/17/20 History Hydroxychloroquine Sulfate 200 mg PO DAILY 11/17/20 11/17/20 History [Plaquenil 200mg tablet] Lactulose [Lactulose 20gm/30ml 15 ml PO DAILY 11/17/20 11/17/20 History Oral Soln] Loratadine [Claritin 10mg 10 mg PO DAILY 11/17/20 11/17/20 History Tablet] Losartan Potassium 25 mg PO DAILY 11/17/20 11/17/20 History Omeprazole [Omeprazole 40mg 40 mg PO DAILY 11/17/20 11/17/20 History Capsule] Potassium Chloride 10 meq PO DAILY 11/17/20 11/17/20 History hydroCHLOROthiazide [HCTZ 25mg 25 mg PO DAILY 11/17/20 11/17/20 History tab] metHOTREXate sodium [metHOTREXate 8 tab PO WEEKLY 11/17/20 11/17/20 History 2.5mg Tablet] predniSONE [Deltasone 10mg 10 mg PO DAILY PRN 11/17/20 11/17/20 History tablet] Height: 1.55 m Weight: 56.897 kg Laboratory Results:: Laboratory Results - last 24 hr 11/21/20 04:30: WBC 18.6 H, RBC 3.66 L, Hgb 10.4 L, Hct 34.1 L, MCV 93.2, MCH 28.3, MCHC 30.3 L, RDW 17.1, Plt Count 428 H, MPV 9.7, Neut % (Auto) 87.6 H, Lymph % (Auto) 4.6 L, [place] % (Auto) 7.0, Eos % (Auto) 0.0 L, Baso % (Auto) 0.7, Neut # (Auto) 16.3 H, Lymph # (Auto) 0.9, [place] # (Auto) 1.3 H, Eos # (Auto) 0.0, Baso # (Auto) 0.1, Total Counted 100, Neutrophils % (Manual) 88 H, Band Neutrophils % 8.0, Lymphocytes % (Manual) 3 L, Monocytes % (Manual) 1 L, Platelet Estimate Normal, Hypochromasia 2+, Poikilocytosis 1+, Anisocytosis 1+, [place] Cells 1+ 11/21/20 04:30: Sodium 141, Potassium 4.0, Chloride 108 H, Carbon Dioxide 25, Anion Gap 12.0, BUN 39 H, Creatinine 1.20 H, Estimated Creat Clear 31, Estimated GFR 43 L, Est GFR ( Amer) 52 L, Glucose 92, Calcium 7.7 L 11/21/20 09:40: Specimen Source Right brachial, O2 % 100, ABG pH 7.43, ABG pCO2 32.9 L, ABG pO2 28.7 L, ABG HCO3 21.2 L, ABG Total CO2 22.2 L, ABG O2 Saturation 54 L*, ABG Base Excess -3.2 L, Shad Test Patient unable Medical History: Reports:: Hypertension Denies:: Cancer, Diabetes Mellitus Type 1, Diabetes Mellitus Type 2, MRSA Assessment and Plan (1) COVID-19 virus detected Status: Acute Category: Medical Code(s): U07.1 - COVID-19 (2) Elevated troponin Status: Acute Category: Medical Code(s): R77.8 - Other specified abnormalities of plasma proteins (3) HCAP (healthcare-associated pneumonia) Status: Acute Category: Medical Code(s): J18.9 - Pneumonia, unspecified organism (4) HTN (hypertension) Status: Chronic Qualifiers: Hypertension type: unspecified Qualified Code(s): I10 - Essential (primary) hypertension Category: Medical Code(s): I10 - Essential (primary) hypertension (5) Renal insufficiency Status: Chronic Category: Medical Code(s): N28.9 - Disorder of kidney and ureter, unspecified (6) Hypoxia Status: Acute Category: Medical Code(s): R09.02 - Hypoxemia - Assessment and plan all Dx Assessment and Plan for all problems:: BASED ON PATIENT FACTORS, RECOMMEND VANCOMYCIN 1 GM IV Q36H. PATIENT IS ALSO ON LEVAQUIN AND CEFEPIME FOR HCAP. PHARMACY WILL F
--- NOTE | 2020-11-21 15:54 | PC.NURSE ---
Addendum entered by Concepcion Sandoval RN 11/21/20 17:11: PT HAS REFUSED HER ASCORBIC ACID B/C SHE STATES IT TASTE BITTER. Original Note: PT IS RESTING IN BED. EARLIER THIS MORNING PT'S O2 SATURATION WAS 80-85% ON VAPOTHERM AND NON REBREATHER. PT IS NOW ON BIPAP AND MAINTAINING AN O2 SATURATION 93-96%. PT HAS TOLERATED BIPAP WELL AND STATED LATER IN THE AFTERNOON SHE FELT BETTER. NEW IV ACCESS WAS OBTAINED TO THE [facility]. ORAL CARE PROVIDED FREQUENTLY. PT HAS BEEN TAKING SIPS OF WATER ON AND OFF T/O THE SHIFT. LUNG SOUNDS HAVE FINE CRACKLES IN THE BASES. ABDOMEN SOFT/NON TENDER WITH ACTIVE BOWEL SOUNDS. WILL CONTINUE TO MONITOR.
--- NOTE | 2020-11-21 20:44 | PC.NURSE ---
Dr. Polk called at the beginning of the shift and stated he talked to the POA and that she wanted to change the patient's code status. POA was contacted and new form was filled out. Pt is now to be a intubate only. She does not want CPR, ACLS drugs, or shock if the patient's heart stops beating but she does want her to be intubated if her oxygen sats decrease and she needs to be intubated. The patient is resting in bed. She continues on the bipap @ 100% FiO2. She continues in contact and airborne precautions. NSR on telemetry. She took her medication crushed in pudding.
[2020-11-22] VITALS (13 sets, daily range): BP systolic 116–143; BP diastolic 49–88; PULSE 60–101; RESP 20–28; TEMP 36–36.5; O2SAT 92–95; BMI 23.6
[2020-11-22 06:09] LABS: Chloride 111 mmol/L (98-107); Sodium 143 mmol/L (136-145)
[2020-11-22 06:10] LABS: Potassium 4.4 mmoL/L (3.5-5.1)
[2020-11-22 06:12] LABS: Anion Gap 11.4 mEq/L (5-15); Blood Urea Nitrogen 35 mg/dl (7-17); Carbon Dioxide 25 mmol/L (22.0-30.0); Creatinine Clearance Estimated 34 mL/min (50-200); Estimated Glomerular Filt Rate 47 ml/min (>60); GFR (African American) 57 ML/MIN (>60)
[2020-11-22 06:13] LABS: Calcium 7.7 mg/dl (8.4-10.2); Glucose 106 mg/dl (74-100)
--- NOTE | 2020-11-22 09:24 | HMH.ACPN2 ---
Internal Medicine - PN: Subj *Date: 11/22/20 *Time: 09:24 Interval history: Patient with no new complaints today. Exam Vital signs and Labs for Last 24 Hours: Temp Pulse Resp BP Pulse Ox 97.4 F L 101 H 28 H 136/68 94 L 11/22/20 08:00 11/22/20 08:00 11/22/20 08:00 11/22/20 08:00 11/22/20 08:00 Laboratory Results - last 24 hr 11/21/20 09:40: Specimen Source Right brachial, O2 % 100, ABG pH 7.43, ABG pCO2 32.9 L, ABG pO2 28.7 L, ABG HCO3 21.2 L, ABG Total CO2 22.2 L, ABG O2 Saturation 54 L*, ABG Base Excess -3.2 L, Shad Test Patient unable 11/22/20 04:55: Sodium 143, Potassium 4.4, Chloride 111 H, Carbon Dioxide 25, Anion Gap 11.4, BUN 35 H, Creatinine 1.10 H, Estimated Creat Clear 34, Estimated GFR 47 L, Est GFR ( Amer) 57 L, Glucose 106 H, Calcium 7.7 L Vital Signs - 24 hr 11/21/20 11:43 11/21/20 12:00 11/21/20 12:40 Temperature 100.1 F H Pulse Rate 89 100 H Pulse Rate [Right Brachial] 92 H Respiratory Rate 24 Blood Pressure [Right Arm] 142/59 H 02 Sat by Pulse Oximetry 95 86 L 11/21/20 16:00 11/21/20 19:50 11/21/20 20:00 Temperature 98.0 F 96.5 F L Pulse Rate 99 H 80 Pulse Rate [Right Brachial] 86 83 Respiratory Rate 22 22 Blood Pressure [Right Arm] 119/52 L 133/60 02 Sat by Pulse Oximetry 92 L 91 L 91 L 11/21/20 21:06 11/21/20 23:35 11/22/20 00:00 Temperature 97.2 F L Pulse Rate 94 H 60 Pulse Rate [Right Brachial] 79 Respiratory Rate 21 Blood Pressure [Right Arm] 111/56 L 02 Sat by Pulse Oximetry 96 11/22/20 03:45 11/22/20 04:00 11/22/20 06:59 Temperature 97.3 F L Pulse Rate 70 60 Pulse Rate [Right Brachial] 70 Respiratory Rate 21 Blood Pressure [Right Arm] 133/63 02 Sat by Pulse Oximetry 94 L 11/22/20 08:00 Temperature 97.4 F L Pulse Rate Pulse Rate [Right Brachial] 101 H Respiratory Rate 28 H Blood Pressure [Right Arm] 136/68 02 Sat by Pulse Oximetry 94 L I & O for Last 24 hours: Intake & Output 11/19/20 11/20/20 11/21/20 11/22/20 23:59 23:59 23:59 23:59 Intake Total 600 / 700 1003 / 1003 1678 / 1678 579 / 579 Output Total 1150 / 1150 1325 / 1325 675 / 675 375 / 375 Balance -550 / -450 -322 / -322 1003 / 1003 204 / 204 Weight 126 lb 8 oz 126 lb 5 oz 125 lb 7 oz 125 lb Microbiology Reports for the Last 24 Hours: Microbiology 11/17/20 01:10 Blood Blood Culture - Final NO GROWTH AFTER 5 DAYS 11/17/20 01:10 Blood Blood Culture - Final NO GROWTH AFTER 5 DAYS Narrative: O2 sats are better with Bipap treatment. - Constitutional no acute distress - *Routine HEENT Exam Head: Present: normocephalic Eye: Present: EOMI, PERRL ENT: Present: mucous membranes moist - *Routine Neck Exam Present: supple. Absent: lymphadenopathy - *Routine Respiratory Exam Present: crackles (bilateral) - *Routine Cardiovascular Exam Present: RRR - *Routine Abdominal Exam Present: soft, normoactive bowel sounds. Absent: tenderness - *Routine Extremities Exam Absent: cyanosis, clubbing, edema - *Routine Skin Exam Present: warm. Absent: rash - *Routine Neurological Exam Present: alert, oriented X3 Assessment and Plan (1) COVID-19 virus detected Status: Acute Category: Medical Code(s): U07.1 - COVID-19 (2) Elevated troponin Status: Acute Category: Medical Code(s): R77.8 - Other specified abnormalities of plasma proteins (3) HCAP (healthcare-associated pneumonia) Status: Acute Category: Medical Code(s): J18.9 - Pneumonia, unspecified organism (4) HTN (hypertension) Status: Chronic Qualifiers: Hypertension type: unspecified Qualified Code(s): I10 - Essential (primary) hypertension Category: Medical Code(s): I10 - Essential (primary) hypertension (5) Renal insufficiency Status: Chronic Category: Medical Code(s): N28.9 - Disorder of kidney and ureter, unspecified (6) Hypoxia Status: Acute Categor
--- NOTE | 2020-11-22 14:22 | DIET.NUTRFU ---
Pt continues with minimal intakes, unable to tolerate PO. Weight remains stable. TID protein shake changed to ensure, pt may tolerate better. Continuing to monitor.
--- NOTE | 2020-11-22 18:38 | PC.NURSE ---
PT IS RESTING IN BED. NO COMPLAINTS OF DISCOMFORT OR SOA. O2 SATURATION HAS MAINTAINED 93-96% ON BIPAP WITH 100% FI02. LUNG SOUNDS HAVE FINE CRACKLES IN THE BASES. ABDOMEN IS MILDLY DISTENDED WITH ACTIVE BOWEL SOUNDS. TURNED AND REPOSITIONED FREQUENTLY ALTHOUGH PT STATES SHE IS NOT COMFORTABLE ON EITHER SIDE. SCATTERED BRUISING NOTED . PT TOLERATED BATH AND BED CHANGE THIS SHIFT. ALERT AND ORIENTED X3. VSS. WILL CONTINUE TO MONITOR.
[2020-11-23] VITALS (12 sets, daily range): BP systolic 100–158; BP diastolic 47–75; PULSE 75–106; RESP 20–29; TEMP 35.8–36.8; O2SAT 90–96; BMI 24.5
--- NOTE | 2020-11-23 05:04 | PC.NURSE ---
Patient has rested throughout the night. Neuro: Patient is oriented to person only. Become frusterated with care very easily and will only do things at her own pace. Cardiac: Patient has been normal sinus/sinus tach on tele. Occassional pvc. Normotensive bp. Pulm: patient has remained on 100% bipap throughout the night. Current oxygen sat is 93. GI: No n/v/d. 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 Has not eaten or drank anything. : hancock in place. Urine output adequate. Skin: c/d/i. Will continue to monitor patient. No issues or concerns at this time.
--- NOTE | 2020-11-23 09:15 | HMH.ACPN2 ---
Internal Medicine - PN: Subj *Date: 11/23/20 *Time: 09:15 Interval history: Patient with no new complaints today. Exam Vital signs and Labs for Last 24 Hours: Temp Pulse Resp BP Pulse Ox 97.8 F 101 H 24 158/56 H 95 11/23/20 08:00 11/23/20 08:00 11/23/20 08:00 11/23/20 08:00 11/23/20 08:00 Vital Signs - 24 hr 11/22/20 11:32 11/22/20 12:00 11/22/20 15:44 Temperature 97.5 F L 97.7 F Pulse Rate 100 H Pulse Rate [Right Brachial] 100 H 88 Respiratory Rate 26 H 24 Blood Pressure [Right Arm] 130/60 116/88 02 Sat by Pulse Oximetry 93 L 93 L 11/22/20 16:00 11/22/20 20:00 11/22/20 20:29 Temperature 97.6 F Pulse Rate 85 70 75 Pulse Rate [Right Brachial] 82 Respiratory Rate 20 Blood Pressure [Right Arm] 119/49 L 02 Sat by Pulse Oximetry 95 11/22/20 23:50 11/23/20 00:00 11/23/20 03:27 Temperature 96.8 F L 97.6 F Pulse Rate 90 Pulse Rate [Right Brachial] 90 76 Respiratory Rate 22 21 Blood Pressure [Right Arm] 143/57 H 134/47 L 02 Sat by Pulse Oximetry 94 L 90 L 11/23/20 04:00 11/23/20 06:30 11/23/20 08:00 Temperature 97.8 F Pulse Rate 80 75 90 Pulse Rate [Right Brachial] 101 H Respiratory Rate 24 Blood Pressure [Right Arm] 158/56 H 02 Sat by Pulse Oximetry 95 I & O for Last 24 hours: Intake & Output 11/20/20 11/21/20 11/22/20 11/23/20 23:59 23:59 23:59 23:59 Intake Total 1003 / 1003 1678 / 1678 789 / 789 Output Total 1325 / 1325 675 / 675 950 / 950 275 / 275 Balance -322 / -322 1003 / 1003 -161 / -161 -275 / -275 Weight 126 lb 5 oz 125 lb 7 oz 125 lb 130 lb - Constitutional no acute distress - *Routine HEENT Exam Head: Present: normocephalic Eye: Present: EOMI, PERRL ENT: Present: mucous membranes moist - *Routine Neck Exam Present: supple. Absent: lymphadenopathy - *Routine Respiratory Exam Present: crackles (bibasilar). Absent: wheezes - *Routine Cardiovascular Exam Present: RRR - *Routine Abdominal Exam Present: soft, normoactive bowel sounds. Absent: tenderness - *Routine Extremities Exam Absent: cyanosis, clubbing, edema - *Routine Skin Exam Present: warm. Absent: rash - *Routine Neurological Exam Present: alert Assessment and Plan (1) COVID-19 virus detected Status: Acute Category: Medical Code(s): U07.1 - COVID-19 (2) Elevated troponin Status: Acute Category: Medical Code(s): R77.8 - Other specified abnormalities of plasma proteins (3) HCAP (healthcare-associated pneumonia) Status: Acute Category: Medical Code(s): J18.9 - Pneumonia, unspecified organism (4) HTN (hypertension) Status: Chronic Qualifiers: Hypertension type: unspecified Qualified Code(s): I10 - Essential (primary) hypertension Category: Medical Code(s): I10 - Essential (primary) hypertension (5) Renal insufficiency Status: Chronic Category: Medical Code(s): N28.9 - Disorder of kidney and ureter, unspecified (6) Hypoxia Status: Acute Category: Medical Code(s): R09.02 - Hypoxemia - Assessment and plan all Dx Assessment and Plan for all problems:: Patient has not improved despite antibiotic change. Plan to have Dr. Cortés see patient.
--- NOTE | 2020-11-23 09:39 | XR_ITS ---
PROCEDURE: XR CHEST PORTABLE Referring Doctor: Christina Cortés Patient Age:85Y CLINICAL HISTORY: covid bilateral pneumonia COMPARISON: CR XR CHEST PORTABLE from 11/17/[address] CHEST WO CON from 11/17/2020 CR XR CHEST PORTABLE from 11/21/2020 FINDINGS: Upright portable CXR performed today, compared to 2019. Again see extensive bilateral infiltrates most pronounced throughout the right lung. Today the we see slightly better expansion bilaterally and with this the central portion of the infiltrates are less dense bilaterally. However in the right lung there may be slight additional peripheral infiltrate but the central infiltrate is less dense and better expanded. At the right chest-infiltrate is infiltrate appears more diffuse today-most pronounced at the right mid lung and right base with only slight sparing at the right apex. At the left chest again the central infiltrate is less dense but there is slight dissemination from perihilar region to central and mid lung ramos bilaterally. The heart mildly enlarged pulmonary vascularity is generous upper normal. Mediastinum unchanged. Calcified aorta and aortic knob and descending aorta. Chest wall unremarkable awake overnight monitor leads in place but No pleural effusion but no pneumothorax. The IMPRESSION: Slight overall better expansion today. The dense perihilar infiltrate seen yesterday is less dense today-but there now appears to be slightly more disseminated appearance of infiltrate. Infiltrate is more diffusely seen throughout the right lung, and extends more peripheral today. In the left lung the left perihilar infiltrate is less dense but now see more diffuse lower infiltrate is throughout central portion of the left lung-both JOSE RAFAEL and left lower lobe Dictated by: Beto Lopez MD 11/23/2020 10:53 Beto Lopez MD in [place] 11/23/2020 10:53
--- NOTE | 2020-11-23 11:00 | PC.NURSE ---
Sputum cup given to patient. Pt verbalizes understanding to produce sputum sample.
--- NOTE | 2020-11-23 13:08 | HMH.PULMCON ---
*Admission Date: 11/17/20 *Reason for consult:: Hypoxic respiratory failure, COVID-19 pneumonia *History of present illness: Ms. Barcenas is a 85-year-old female with a recent diagnosis of COVID-19 pneumonia possible healthcare cefepime admitted to the hospital on 11/17/2020 with worsening hypoxic respiratory failure has been needing high oxygen requirements from high flow nasal cannula to BiPAP since then with no improvement in her respiratory status and pulmonary was called today for further management. Since admission patient has been receiving remdesivir and dexamethasone for COVID-19 pneumonia, she was initiated on Septra exacerbation for community-acquired pneumonia which were then escalated to cefepime to cover hospital-acquired pneumonia. [facility] History Medical History: Reports:: Hypertension Denies:: Cancer, Diabetes Mellitus Type 1, Diabetes Mellitus Type 2, MRSA *Have you ever received a pneumonia vaccine?: Yes *Have you received a flu vaccine this season?: Yes Other Medical History: Reports: Anemia, Arthritis Amputation: No - *Social History Last grade of school completed: High school graduate Smoking Status: Former smoker Tobacco Type: cigarettes # Packs/Day (cigarettes): 1 Alcohol Intake: never Alcohol Intake Frequency:: a few times a month *Occupational Status:: retired Housing: jail *Travel in the last 8 weeks: None Family Hx:: Cancer ROS - Review of Systems Limited review of systems obtained as patient was on BiPAP unable to communicate - Cons Reports body ache(s), Reports fatigue - Card Reports shortness of breath - Resp Respiratory: Yes chest congestion, Yes cough Meds Home Medications Medication Instructions Recorded Confirmed Type Acetaminophen [Tylenol 500mg 1,000 mg PO HS 11/17/20 11/17/20 History tablet] Alendronate Sodium [Alendronate 40 mg PO WEEKLY 11/17/20 11/17/20 History 40mg Tablet] Aspirin [Aspirin 81mg chewable 81 mg PO DAILY 11/17/20 11/17/20 History tab] Calcium Carbonate/Vitamin D3 1 each PO BID 11/17/20 11/17/20 History [Calcium 600-Vit D3 400 Tablet] Docusate Sodium [Docusate Sodium 100 mg PO DAILY 11/17/20 11/17/20 History 100mg Cap] Folic Acid [Folic Acid 1mg tablet] 1 mg PO DAILY 11/17/20 11/17/20 History Hydroxychloroquine Sulfate 200 mg PO DAILY 11/17/20 11/17/20 History [Plaquenil 200mg tablet] Lactulose [Lactulose 20gm/30ml 15 ml PO DAILY 11/17/20 11/17/20 History Oral Soln] Loratadine [Claritin 10mg 10 mg PO DAILY 11/17/20 11/17/20 History Tablet] Losartan Potassium 25 mg PO DAILY 11/17/20 11/17/20 History Omeprazole [Omeprazole 40mg 40 mg PO DAILY 11/17/20 11/17/20 History Capsule] Potassium Chloride 10 meq PO DAILY 11/17/20 11/17/20 History hydroCHLOROthiazide [HCTZ 25mg 25 mg PO DAILY 11/17/20 11/17/20 History tab] metHOTREXate sodium [metHOTREXate 8 tab PO WEEKLY 11/17/20 11/17/20 History 2.5mg Tablet] predniSONE [Deltasone 10mg 10 mg PO DAILY PRN 11/17/20 11/17/20 History tablet] Allergies Allergy/AdvReac Type Severity Reaction Status Date / Time Penicillins Allergy Severe Rash Verified 11/17/20 01:28 procainamide Allergy Intermediate Rash Verified 11/17/20 01:30 Exam - Constitutional Comment:: Patient in severe respiratory distress - [facility] Exam [facility]: normocephalic, atraumatic - Eye Exam Eyes:: eyelids normal, normal conjunctiva - Neck Exam Neck:: thyroid normal, no lymphadenopathy - Respiratory Exam Comments: Patient in severe respiratory distress on BiPAP 8/16, 100% FiO2 saturating 96%. Patient stated that her respiratory status is okay, slightly better than prior. Auscultation revealed bilateral coarse breath sounds with no wheezing - Cardiovascular Exam Cardiac:: S1, S2 - GI Exam GI:: soft, no hepatosplenomegaly - Skin Exam Skin: warm, no rash - Neurological Exam Neurological: alert, awake - Extremities Exam Extremities: no cyanosis, no
[2020-11-23 13:33] LABS: Vancomycin,Trough 8.2 ug/mL (5.0-10.0)
--- NOTE | 2020-11-23 13:57 | CA_ITS ---
APPROVED REPORT EXAM: Comprehensive 2D, Doppler, and color-flow Echocardiogram Parts Counterperson: Shweta Biswas CRT Ht: 5 ft 1 in Wt: 130lbs BSA: 1.57 BP: 158/56 mmHg Indications: Covid, DNR, SOB, HTN, bipap Echo Enhancing Agent Indication: Rule out Shunt Agent(s) / Amount(s) Used: Agitated Saline cc Comments: B/S non-diagnostic due to poor windows, pt flat on flat, sob, + covid lung interference. 2D Dimensions Aortic Root 1.84 cm M-Mode Dimensions RVDd 1.86 cm (0.9-2.6) LA Diam 3.70 cm (1.9-4.0) LVDd 4.59 cm (3.5-5.7) Ao Diam 4.05 cm (2.0-3.7) LVDs 2.50 cm (3.5-5.7) IVSd 1.45 cm (0.6-1.1) PWd 0.78 cm (0.6-1.1) EF (Teich) 77.00% FS 45.50% EDV (Teich) 96.80 mL ESV (Teich) 22.30 mL LV Diastology E Decel Time 150.00 (160-240 msec) E/A Ratio 1.07 Aortic Valve AO Peak GR. 6.30 mmHg Mitral Valve MV E Max Yves. 80.00 (40-130 cm/s) MV A Velocity 75.00 (40-130 cm/s) E/A Ratio 1.07 MV Decel. Time 150.00 (160-240 ms) MV PHT 44.00 ms Pulmonary Valve PV Peak Velocity 1.00 (50-150 cm/s) Tricuspid Valve TR P. Velocity 321.00 cm/s RAP Estimate 10.00 mmHg RVSP 51.20 mmHg Left Ventricle Technically difficult study because of the patient factors and poor acoustic windows. Left atrium is mildly enlarged, left ventricle is normal size, mild concentric left ventricular hypertrophy, visually estimated ejection fraction approximately 50% with no regional wall motion abnormality, endocardial surfaces are very poorly visualized, diastolic parameters left inconclusive. Right Ventricle Right atrium and right ventricle are mildly enlarged. Contractility of the right ventricle is preserved. Atria Intra-atrial septum is intact, agitated saline contrast study is nondiagnostic for intracardiac shunt. Aortic Valve Aortic valve is poorly visualized, there is no obvious aortic stenosis or aortic insufficiency. Mitral Valve Mitral valve leaflets are minimally thickened, there is no mitral stenosis, there is mild mitral regurgitation. Tricuspid Valve Tricuspid valve is minimally thickened, there is mild tricuspid regurgitation, tricuspid regurgitation jet velocity is inadequate for calculation of the right ventricular systolic pressure. Pulmonic Valve Pulmonic valve is poorly visualized. Great Vessels Aortic root is normal size. Pericardium Small pericardial effusion and anterior echo-free space seen. Conclusion 1. Technically difficult study because of the patient factors and poor acoustic windows. 2. Mild biatrial enlargement, normal left ventricular size, mild concentric left ventricular hypertrophy, visually estimated ejection fraction 50% with no obvious regional wall motion abnormality, endocardial surfaces are poorly visualized, diastolic parameters are inconclusive. 3. Mildly enlarged right ventricle with normal contractility. 4. Interatrial septum appears to be intact, agitated saline contrast study is suboptimal for detection of intracardiac shunt. 5. Mild mitral and tricuspid regurgitation. 6. Small pericardial effusion and anterior echo-free space seen. Electronically signed by : George Buchanan, 11/24/2020 05:38:23
--- NOTE | 2020-11-23 13:59 | HMH.PHACONS ---
- Pharmacy Consult Date: 11/23/20 Time: 13:59 Referring provider: DR. BURGOS Reason for Consult:: VANCOMYCIN TROUGH LEVEL Allergies and ADEs:: Allergies Allergy/AdvReac Type Severity Reaction Status Date / Time Penicillins Allergy Severe Rash Verified 11/17/20 01:28 procainamide Allergy Intermediate Rash Verified 11/17/20 01:30 Home Medications:: Home Medications Medication Instructions Recorded Confirmed Type Acetaminophen [Tylenol 500mg 1,000 mg PO HS 11/17/20 11/17/20 History tablet] Alendronate Sodium [Alendronate 40 mg PO WEEKLY 11/17/20 11/17/20 History 40mg Tablet] Aspirin [Aspirin 81mg chewable 81 mg PO DAILY 11/17/20 11/17/20 History tab] Calcium Carbonate/Vitamin D3 1 each PO BID 11/17/20 11/17/20 History [Calcium 600-Vit D3 400 Tablet] Docusate Sodium [Docusate Sodium 100 mg PO DAILY 11/17/20 11/17/20 History 100mg Cap] Folic Acid [Folic Acid 1mg tablet] 1 mg PO DAILY 11/17/20 11/17/20 History Hydroxychloroquine Sulfate 200 mg PO DAILY 11/17/20 11/17/20 History [Plaquenil 200mg tablet] Lactulose [Lactulose 20gm/30ml 15 ml PO DAILY 11/17/20 11/17/20 History Oral Soln] Loratadine [Claritin 10mg 10 mg PO DAILY 11/17/20 11/17/20 History Tablet] Losartan Potassium 25 mg PO DAILY 11/17/20 11/17/20 History Omeprazole [Omeprazole 40mg 40 mg PO DAILY 11/17/20 11/17/20 History Capsule] Potassium Chloride 10 meq PO DAILY 11/17/20 11/17/20 History hydroCHLOROthiazide [HCTZ 25mg 25 mg PO DAILY 11/17/20 11/17/20 History tab] metHOTREXate sodium [metHOTREXate 8 tab PO WEEKLY 11/17/20 11/17/20 History 2.5mg Tablet] predniSONE [Deltasone 10mg 10 mg PO DAILY PRN 11/17/20 11/17/20 History tablet] Height: 1.55 m Weight: 58.967 kg Laboratory Results:: Laboratory Results - last hr 11/23/20 12:25: Vancomycin Trough 8.2 Medical History: Reports:: Hypertension Denies:: Cancer, Diabetes Mellitus Type 1, Diabetes Mellitus Type 2, MRSA Assessment and Plan (1) COVID-19 virus detected Status: Acute Category: Medical Code(s): U07.1 - COVID-19 (2) Elevated troponin Status: Acute Category: Medical Code(s): R77.8 - Other specified abnormalities of plasma proteins (3) HCAP (healthcare-associated pneumonia) Status: Acute Category: Medical Code(s): J18.9 - Pneumonia, unspecified organism (4) HTN (hypertension) Status: Chronic Qualifiers: Hypertension type: unspecified Qualified Code(s): I10 - Essential (primary) hypertension Category: Medical Code(s): I10 - Essential (primary) hypertension (5) Renal insufficiency Status: Chronic Category: Medical Code(s): N28.9 - Disorder of kidney and ureter, unspecified (6) Hypoxia Status: Acute Category: Medical Code(s): R09.02 - Hypoxemia - Assessment and plan all Dx Assessment and Plan for all problems:: BASED ON VANCOMYCIN TROUGH LEVEL AND PATIENT FACTORS, RECOMMEND CONTINUING VANCOMYCIN 750 MG IV Q24H AT THIS TIME. PHARMACY WILL CONTINUE TO FOLLOW DAILY AND ADJUST APPROPRIATE.
--- NOTE | 2020-11-23 17:38 | PC.NURSE ---
pt currently on bipap at 100%. switched to vapotherm for meals and meds. o2 sat drops to the 70's when taken off bipap. pt has refused most meals was able to take some pudding in at lunch with assist from staff. hancock in place and draining. dr. petty was notified over ct order and pt unable to tolerate being off bipap. was given verbal to hold off on ct at this time. iv patent and infusing per order. vss. call light in reach. will continue to monitor.
[2020-11-24] VITALS (14 sets, daily range): BP systolic 117–141; BP diastolic 43–66; PULSE 80–120; RESP 20–29; TEMP 36.3–37.2; O2SAT 90–98; BMI 24.2
--- NOTE | 2020-11-24 04:12 | PC.NURSE ---
Neuro: Oriented to person and hospital setting. Unsure of date. Cardiac: BP is normotensive at 121/75. HR is elevated, 99, sinus tach. GI: No n/v/d. No bm this shift. : Chappell in place. Adequate urine output.. Skin: c/d/i. Q2 hr turn. Pulm: Patient has rested on bipap throughout the night. Maintained oxygenation at 95%. Will continue to monitor patient.
--- NOTE | 2020-11-24 08:29 | HMH.PULMPN ---
Internal Medicine - PN: Subj *Date: 11/24/20 *Time: 09:38 Interval history: No acute respiratory events overnight. Patient respiratory status remained stable and critical Exam - Constitutional Constitutional:: comfortable - HENMT Exam HENMT: normocephalic, atraumatic - Neck Exam Neck:: thyroid normal, no lymphadenopathy - Respiratory Exam Comments: Patient appears to be in mild respiratory distress. Auscultation revealed bilateral coarse breath sounds unchanged from yesterday. - Cardiovascular Exam Cardiac:: S1, S2 - GI Exam GI:: no hepatosplenomegaly - Skin Exam Skin: warm, no rash, dry - Neurological Exam Neurological: alert, awake - Extremities Exam Extremities: no cyanosis, no clubbing, no edema Assessment and Plan (1) COVID-19 virus detected Status: Acute Category: Medical Code(s): U07.1 - COVID-19 (2) Elevated troponin Status: Acute Category: Medical Code(s): R77.8 - Other specified abnormalities of plasma proteins (3) HCAP (healthcare-associated pneumonia) Status: Acute Category: Medical Code(s): J18.9 - Pneumonia, unspecified organism (4) HTN (hypertension) Status: Chronic Qualifiers: Hypertension type: unspecified Qualified Code(s): I10 - Essential (primary) hypertension Category: Medical Code(s): I10 - Essential (primary) hypertension (5) Renal insufficiency Status: Chronic Category: Medical Code(s): N28.9 - Disorder of kidney and ureter, unspecified (6) Hypoxia Status: Acute Category: Medical Code(s): R09.02 - Hypoxemia - Assessment and plan all Dx Assessment and Plan for all problems:: #Acute hypoxic respiratory failure: #COVID-19 pneumonia: #Healthcare associated pneumonia: 85-year-old female, unable to obtain prior respiratory history admitted with COVID-19 pneumonia needing high oxygen requirements since admission from high flow to BiPAP with no improvement has been receiving remdesivir and dexamethasone along with antibiotics that was initiated on ceftriaxone azithromycin, escalated to cefepime along with vancomycin and levofloxacin on 11/21/2020. CT chest without contrast performed on this admission with bilateral pulmonary infiltrates. BNP elevated at 2610 from admission. Blood cultures from admission negative. Sputum culture still pending. Admission COVID-19 PCR positive, other respiratory viral panel negative. Chest x-ray from today showed bilateral airspace disease slightly worsened from prior. Etiology of this patient unimproved respiratory failure can be multifactorial. Interval update: Echocardiogram performed, poor windows however reported biatrial enlargement with EF of 50%. Septum intact with no evidence of shunt. Good response to Lasix with a total of 2.2 L out yesterday however patient only net negative of 59 mL. Patient currently on BiPAP high settings, could not wean her to obtain a CT PE. Plan: -Follow with repeat labs and if creatinine is stable will give another dose of diuretics -Continue vancomycin, cefepime and levofloxacin for healthcare associated pneumonia follow with nasal MRSA PCR culture - Continue remdesivir and dexamethasone - DuoNebs every 6 hours scheduled along with budesonide every 12 scheduled - CT PE protocol to evaluate for any pulmonary embolism that might be contributing to her nonresolving respiratory failure -Repeat blood and sputum cultures - Hypocalcemia replacement as per primary team as patient's low calcium is true given her normal albumin. #Thank you for involving pulmonary in this patient care. We will continue to follow.
--- NOTE | 2020-11-24 08:56 | HMH.ACPN2 ---
<Alyse Dias - Last Filed: 11/24/20 08:56> Internal Medicine - PN: Subj *Date: 11/24/20 *Time: 08:56 Interval history: Patient states she is doing okay. She is wanting to eat breakfast. She states she is breathing okay and denies chest pain. Per nursing. She remains on BiPAP. She was on able to tolerate being off the BiPAP for CT of the chest. chest x-ray this a.m. showed slight overall better expansion. The dense perihilar infiltrate is less dense today but now there appears to be a slightly more disseminated appearance of the infiltrate infiltrate is more diffusely seen throughout the right lung and extends more peripheral today in the left lung the left perihilar infiltrate is less since but now see more diffuse lower infiltrate ECHO results as follows: Conclusion 1. Technically difficult study because of the patient factors and poor acoustic windows. 2. Mild biatrial enlargement, normal left ventricular size, mild concentric left ventricular hypertrophy, visually estimated ejection fraction 50% with no obvious regional wall motion abnormality, endocardial surfaces are poorly visualized, diastolic parameters are inconclusive. 3. Mildly enlarged right ventricle with normal contractility. 4. Interatrial septum appears to be intact, agitated saline contrast study is suboptimal for detection of intracardiac shunt. 5. Mild mitral and tricuspid regurgitation. 6. Small pericardial effusion and anterior echo-free space seen. Exam Vital signs and Labs for Last 24 Hours: Temp Pulse Resp BP Pulse Ox 97.7 F 103 H 21 141/65 H 92 L 11/24/20 07:51 11/24/20 07:51 11/24/20 07:51 11/24/20 07:51 11/24/20 07:51 Laboratory Results - last 24 hr 11/23/20 12:25: Vancomycin Trough 8.2 I & O for Last 24 hours: Intake & Output 11/21/20 11/22/20 11/23/20 11/24/20 11:59 11:59 11:59 11:59 Intake Total 1459 / 1459 1521 / 1521 320 / 320 2071 / 2071 Output Total 925 / 925 775 / 775 850 / 850 1925 / 1925 Balance 534 / 534 746 / 746 -530 / -530 146 / 146 Weight 125 lb 7 oz 125 lb 130 lb 128 lb 3 oz Microbiology Reports for the Last 24 Hours: Microbiology 12/23/20 12:25 Sputum - Expectorated Sputum Gram Stain - Final - Constitutional no acute distress Comments: Awakened for exam. Assist with exam. - *Routine Respiratory Exam Present: rhonchi (Throughout) Comments: Remains on BiPAP - *Routine Cardiovascular Exam Present: RRR (Monitor showing sinus rhythm) - *Routine Abdominal Exam Present: soft, normoactive bowel sounds. Absent: tenderness - *Routine Extremities Exam Absent: edema - *Routine Neurological Exam Present: alert Assessment and Plan (1) COVID-19 virus detected Status: Acute Category: Medical Code(s): U07.1 - COVID-19 (2) Elevated troponin Status: Acute Category: Medical Code(s): R77.8 - Other specified abnormalities of plasma proteins (3) HCAP (healthcare-associated pneumonia) Status: Acute Category: Medical Code(s): J18.9 - Pneumonia, unspecified organism (4) HTN (hypertension) Status: Chronic Qualifiers: Hypertension type: unspecified Qualified Code(s): I10 - Essential (primary) hypertension Category: Medical Code(s): I10 - Essential (primary) hypertension (5) Renal insufficiency Status: Chronic Category: Medical Code(s): N28.9 - Disorder of kidney and ureter, unspecified (6) Hypoxia Status: Acute Category: Medical Code(s): R09.02 - Hypoxemia - Assessment and plan all Dx Assessment and Plan for all problems:: Patient continues to be followed by pulmonology. Continue with pulmonary care. <Trent Polk - Last Filed: 11/24/20 11:12> Internal Medicine - PN: Subj *Date: 11/24/20 *Time: 11:11 Exam Vital signs and Labs for Last 24 Hours: Temp Pulse Resp BP Pulse Ox 97.7 F 103 H 21 141/65 H 92 L 11/24/20 07:51 11/24/20 07:51 11/24/20 07:51 11/24/20 07:51
[2020-11-24 10:12] LABS: Basophils # 0.2 K/mm3 (0-0.2); Basophils % 0.6 % (0.1-2.0); Eosinophils # 0.1 K/mm3 (0.0-0.4); Eosinophils % 0.2 % (0.1-12.0); Hematocrit 35.7 % (37.0-47.0); Hemoglobin 10.7 g/dL (12.2-16.2); Lymphocytes # 0.3 K/mm3 (0.7-4.5); Lymphocytes % 0.9 % (10-50); Mean Corpuscular HGB Conc 30.1 g/dL (31.8-35.4); Mean Corpuscular Hemoglobin 28.7 pg (27.0-31.2); Mean Corpuscular Volume 95.4 fl (81-99); Mean Platelet Volume 9.8 fl (7.4-10.4); Monocytes # 0.7 K/mm3 (0.1-1.0); Monocytes % 2.5 % (1.7-9.3); Neutrophils # 27.4 K/mm3 (1.8-7.8); Neutrophils % 95.8 % (37.0-80.0); Platelet Count 394 K/mm3 (142-424); Red Blood Count 3.74 M/mm3 (4.20-5.40); Red Cell Distribution Width 17.7 % (11.5-17.5); White Blood Count 28.6 K/mm3 (4.8-10.8)
[2020-11-24 10:14] LABS: MANUAL DIFFERENTIAL MANUAL DIFFERENTIAL (MANUAL DIFF)
[2020-11-24 10:15] LABS: Chloride 111 mmol/L (98-107); Sodium 144 mmol/L (136-145)
[2020-11-24 10:16] LABS: Potassium 3.9 mmoL/L (3.5-5.1)
[2020-11-24 10:18] LABS: Alanine Aminotransferase 26 U/L (12-78); Albumin/Globulin Ratio 0.9 (1.1-1.8); Alkaline Phosphatase 76 U/L (38-126); Anion Gap 14.9 mEq/L (5-15); Aspartate Amino Transferase 61 U/L (14-36); Bilirubin,Total 0.8 mg/dl (0.2-1.3); Blood Urea Nitrogen 37 mg/dl (7-17); Calcium 7.9 mg/dl (8.4-10.2); Carbon Dioxide 22 mmol/L (22.0-30.0); Creatinine Clearance Estimated 32 mL/min (50-200); Estimated Glomerular Filt Rate 43 ml/min (>60); GFR (African American) 52 ML/MIN (>60); Globulin 3.5 g/dL (1.3-3.2); Glucose 111 mg/dl (74-100); Total Protein,Serum 6.5 g/dl (6.3-8.2)
[2020-11-24 10:35] LABS: Acanthocytes 2+; Lymphocytes % 9 % (10-50); Monocytes % 3 % (2-9); Myelocytes % 1 (0-1); Neutrophils % 83 % (42-76); Platelet Estimate Normal; Poikilocytosis 2+; Total Cells Counted 100
--- NOTE | 2020-11-24 13:10 | HMH.ACPN ---
Internal Medicine - PN: Subj *Date: 11/24/20 *Time: 13:10 Exam Vital signs and Labs for Last 24 Hours: Temp Pulse Resp BP Pulse Ox 97.8 F 117 H 20 117/49 L 93 L 11/24/20 12:00 11/24/20 12:10 11/24/20 12:00 11/24/20 12:00 11/24/20 12:00 Laboratory Results - last 24 hr 11/23/20 12:25: Vancomycin Trough 8.2 11/24/20 09:00: WBC 28.6 H*, RBC 3.74 L, Hgb 10.7 L, Hct 35.7 L, MCV 95.4, MCH 28.7, MCHC 30.1 L, RDW 17.7 H, Plt Count 394, MPV 9.8, Neut % (Auto) 95.8 H, Lymph % (Auto) 0.9 L, [place] % (Auto) 2.5, Eos % (Auto) 0.2, Baso % (Auto) 0.6, Neut # (Auto) 27.4 H, Lymph # (Auto) 0.3 L, [place] # (Auto) 0.7, Eos # (Auto) 0.1, Baso # (Auto) 0.2, Total Counted 100, Neutrophils % (Manual) 83 H, Band Neutrophils % 3.0, Lymphocytes % (Manual) 9 L, Monocytes % (Manual) 3, Metamyelocytes % 1.0, Myelocytes % 1, Platelet Estimate Normal, Poikilocytosis 2+, Acanthocytes (Spur) 2+ 11/24/20 09:00: Sodium 144, Potassium 3.9, Chloride 111 H, Carbon Dioxide 22, Anion Gap 14.9, BUN 37 H, Creatinine 1.20 H, Estimated Creat Clear 32, Estimated GFR 43 L, Est GFR ( Amer) 52 L, Glucose 111 H, Calcium 7.9 L, Total Bilirubin 0.8, AST 61 H, ALT 26, Alkaline Phosphatase 76, Total Protein 6.5, Albumin 3.0 L, Globulin 3.5 H, Albumin/Globulin Ratio 0.9 L I & O for Last 24 hours: Intake & Output 11/21/20 11/22/20 11/23/20 11/24/20 23:59 23:59 23:59 23:59 Intake Total 1678 / 1678 789 / 789 2141 / 2141 100 / 100 Output Total 675 / 675 950 / 950 2200 / 2200 650 / 650 Balance 1003 / 1003 -161 / -161 -59 / -59 -550 / -550 Weight 56.897 kg 56.699 kg 58.967 kg 58.145 kg Microbiology Reports for the Last 24 Hours: Microbiology 11/17/20 12:25 Sputum - Expectorated Sputum Gram Stain - Final Assessment and Plan (1) COVID-19 virus detected Status: Acute Category: Medical Code(s): U07.1 - COVID-19 (2) Elevated troponin Status: Acute Category: Medical Code(s): R77.8 - Other specified abnormalities of plasma proteins (3) HCAP (healthcare-associated pneumonia) Status: Acute Category: Medical Code(s): J18.9 - Pneumonia, unspecified organism (4) HTN (hypertension) Status: Chronic Qualifiers: Hypertension type: unspecified Qualified Code(s): I10 - Essential (primary) hypertension Category: Medical Code(s): I10 - Essential (primary) hypertension (5) Renal insufficiency Status: Chronic Category: Medical Code(s): N28.9 - Disorder of kidney and ureter, unspecified (6) Hypoxia Status: Acute Category: Medical Code(s): R09.02 - Hypoxemia The patient's infection will respond to the chosen ABx?: Yes Is the patient receiving the right drug, dose, and route?: Yes Could a more targeted ABx be ordered?: No (AWAITING CULTURES)
[2020-11-24 16:04] LABS: Microscopic, Urine URINE MICROSCOPIC (MICROSCOPIC)
[2020-11-24 16:06] LABS: Appearance,Urine CLEAR (Clear); Bilirubin,Urine Negative (Negative); Blood, Urine 1+ (Negative); Color,Urine YELLOW (Yellow); Glucose,Urine (UA) Negative (Negative); Ketones,Urine Negative (Negative); Leukocyte Esterase,Urine Negative (Negative); Nitrate,Urine Negative (Negative); PH,Urine 5.5 (5.0-8.5); Protein,Urine Negative (Negative); Specific Gravity, Urine 1.015 (1.005-1.030); Urobilinogen,Urine 0.2 EU/dl (0.2)
[2020-11-24 16:12] LABS: Amorphous Sediment,Urine 1+ /lpf
--- NOTE | 2020-11-24 16:47 | DIET.NUTRFU ---
Pt continues with minimal intake dt becoming SOA while eating. Fair acceptance ensure. Renal function continues at baseline. Weight down 2#. Diet liberalized to regular with varied supplementation TID. Pt may have snacks/supplements by request/RN offer.
--- NOTE | 2020-11-24 18:06 | PC.NURSE ---
PT IS SITTING UP IN THE CHAIR. PT WAS A TOTAL LIFT TO GET OOB TO THE CHAIR. ALERT AND ORIENTED X3. TURNED AND REPOSITIONED IN BED ALTHOUGH PT STATES SHE IS VERY UNCOMFORTABLE WHEN SHE IS TURNED ON EITHER SIDE. PT HAS BEEN DRINKING OFF AND ON T/O THE SHIFT BUT IS UNABLE TO TOLERATE COMING OF THE BIPAP LONGER THAN A FEW MINUTES AT A TIME. LUNG SOUNDS HAVE SCATTERED RHONCHI. ABDOMEN DISTENDED WITH ACTIVE BOWEL SOUNDS. PT HAS BEEN DRINKING HER JUICE IN THE MORNINGS WITH [employer]. DR SUNSHINE ORDERED FOR PT TO HAVE A URINE SPECIMEN BUT WANTED CATHETER CHANGED BEFORE COLLECTION. PT HAD A NEW 16 F CATHETER PLACED AT 1620. 2 ADDITIONAL SETS OF BLOOD CULTURES WERE DRAWN. PT DIURESED 1650 ML'S THIS SHIFT. O2 SATURATION HAS MAINTAINED 91-96% ON BIPAP 100% FIO2. HR 105-115. WILL CONTINUE TO MONITOR.
[2020-11-25] VITALS (24 sets, daily range): BP systolic 122–174; BP diastolic 48–91; PULSE 95–127; RESP 16–29; TEMP 36.3–36.9; O2SAT 86–97; BMI 24.7
--- NOTE | 2020-11-25 03:43 | PC.NURSE ---
Pt has slept well this shift. Pt continues to tolerate bipap appropriately. Rhonchi heard at inspiration and expiration t/o lungs. No cough noted this shift. Pt has been a q2h turn this shift. On tele pt has gone from sinus tach w/ occasional PVC's to sinus arrhythmia at times. PT has been afebrile this shift. Chappell catheter patent and continues to drain clear, yellow urine per gravity. No other acute changes or concerns at this time.
[2020-11-25 06:09] LABS: Chloride 110 mmol/L (98-107)
[2020-11-25 06:10] LABS: Potassium 3.9 mmoL/L (3.5-5.1); Sodium 147 mmol/L (136-145)
[2020-11-25 06:13] LABS: Anion Gap 15.9 mEq/L (5-15); Blood Urea Nitrogen 40 mg/dl (7-17); Calcium 8.4 mg/dl (8.4-10.2); Carbon Dioxide 25 mmol/L (22.0-30.0); Creatinine Clearance Estimated 30 mL/min (50-200); Estimated Glomerular Filt Rate 39 ml/min (>60); GFR (African American) 47 ML/MIN (>60); Glucose 106 mg/dl (74-100)
[2020-11-25 07:12] LABS: Basophils # 0.2 K/mm3 (0-0.2); Basophils % 0.6 % (0.1-2.0); Eosinophils % 0.1 % (0.1-12.0); Hemoglobin 11.6 g/dL (12.2-16.2); Lymphocytes # 0.2 K/mm3 (0.7-4.5); Lymphocytes % 0.8 % (10-50); Mean Corpuscular HGB Conc 30.4 g/dL (31.8-35.4); Mean Corpuscular Hemoglobin 28.6 pg (27.0-31.2); Monocytes # 1.1 K/mm3 (0.1-1.0); Monocytes % 3.6 % (1.7-9.3); Neutrophils # 27.9 K/mm3 (1.8-7.8); Neutrophils % 94.9 % (37.0-80.0); Platelet Count 332 K/mm3 (142-424); Red Blood Count 4.05 M/mm3 (4.20-5.40); Red Cell Distribution Width 18.4 % (11.5-17.5); White Blood Count 29.4 K/mm3 (4.8-10.8)
[2020-11-25 07:30] LABS: MANUAL DIFFERENTIAL MANUAL DIFFERENTIAL (MANUAL DIFF)
--- NOTE | 2020-11-25 08:24 | HMH.ACPN2 ---
Internal Medicine - PN: Subj *Date: 11/25/20 *Time: 08:24 Interval history: Patient states she feels worse today. Exam Vital signs and Labs for Last 24 Hours: Temp Pulse Resp BP Pulse Ox 97.9 F 96 H 26 H 154/67 H 91 L 11/25/20 04:00 11/25/20 04:00 11/25/20 04:00 11/25/20 04:00 11/25/20 04:00 Laboratory Results - last 24 hr 11/24/20 09:00: WBC 28.6 H*, RBC 3.74 L, Hgb 10.7 L, Hct 35.7 L, MCV 95.4, MCH 28.7, MCHC 30.1 L, RDW 17.7 H, Plt Count 394, MPV 9.8, Neut % (Auto) 95.8 H, Lymph % (Auto) 0.9 L, [place] % (Auto) 2.5, Eos % (Auto) 0.2, Baso % (Auto) 0.6, Neut # (Auto) 27.4 H, Lymph # (Auto) 0.3 L, [place] # (Auto) 0.7, Eos # (Auto) 0.1, Baso # (Auto) 0.2, Total Counted 100, Neutrophils % (Manual) 83 H, Band Neutrophils % 3.0, Lymphocytes % (Manual) 9 L, Monocytes % (Manual) 3, Metamyelocytes % 1.0, Myelocytes % 1, Platelet Estimate Normal, Poikilocytosis 2+, Acanthocytes (Spur) 2+ 11/24/20 09:00: Sodium 144, Potassium 3.9, Chloride 111 H, Carbon Dioxide 22, Anion Gap 14.9, BUN 37 H, Creatinine 1.20 H, Estimated Creat Clear 32, Estimated GFR 43 L, Est GFR ( Amer) 52 L, Glucose 111 H, Calcium 7.9 L, Total Bilirubin 0.8, AST 61 H, ALT 26, Alkaline Phosphatase 76, Total Protein 6.5, Albumin 3.0 L, Globulin 3.5 H, Albumin/Globulin Ratio 0.9 L 11/24/20 16:00: Urine Color Yellow, Urine Appearance Clear, Urine pH 5.5, Ur Specific [place] 1.015, Urine Protein Negative, Urine Glucose (UA) Negative, Urine Ketones Negative, Urine Blood 1+, Urine Nitrate Negative, Urine Bilirubin Negative, Urine Urobilinogen 0.2, Ur Leukocyte Esterase Negative, Urine RBC None, Urine WBC None, Ur Squamous Epith Cells None, Amorphous Sediment 1+, Urine Bacteria None 11/25/20 05:35: WBC 29.4 H*, RBC 4.05 L, Hgb 11.6 L, Hct 38.0, MCV 94.0, MCH 28.6, MCHC 30.4 L, RDW 18.4 H, Plt Count 332, MPV 10.0, Neut % (Auto) 94.9 H, Lymph % (Auto) 0.8 L, [place] % (Auto) 3.6, Eos % (Auto) 0.1, Baso % (Auto) 0.6, Neut # (Auto) 27.9 H, Lymph # (Auto) 0.2 L, [place] # (Auto) 1.1 H, Eos # (Auto) 0.0, Baso # (Auto) 0.2 11/25/20 05:35: Sodium 147 H, Potassium 3.9, Chloride 110 H, Carbon Dioxide 25, Anion Gap 15.9 H, BUN 40 H, Creatinine 1.30 H, Estimated Creat Clear 30, Estimated GFR 39 L, Est GFR ( Amer) 47 L, Glucose 106 H, Calcium 8.4 Vital Signs - 24 hr 11/24/20 12:00 11/24/20 12:10 11/24/20 16:00 Temperature 97.8 F 98.9 F Pulse Rate 110 H 113 H 120 H Pulse Rate [Apical] 112 H 120 H Respiratory Rate 20 22 Blood Pressure [Right Arm] 117/49 L 117/66 02 Sat by Pulse Oximetry 93 L 98 11/24/20 17:00 11/24/20 20:00 11/24/20 23:56 Temperature 97.6 F Pulse Rate 112 H 110 H 104 H Pulse Rate [Apical] 103 H Respiratory Rate 22 Blood Pressure [Right Arm] 136/43 L 02 Sat by Pulse Oximetry 90 L 93 L 11/25/20 00:00 11/25/20 04:00 Temperature 98.4 F 97.9 F Pulse Rate 110 H 100 H Pulse Rate [Apical] 105 H 96 H Respiratory Rate 24 26 H Blood Pressure [Right Arm] 150/49 H 154/67 H 02 Sat by Pulse Oximetry 95 91 L I & O for Last 24 hours: Intake & Output 11/22/20 11/23/20 11/24/20 11/25/20 23:59 23:59 23:59 23:59 Intake Total 789 / 789 2141 / 2141 729 / 729 563 / 563 Output Total 950 / 950 2200 / 2200 1650 / 1650 800 / 800 Balance -161 / -161 -59 / -59 -921 / -921 -237 / -237 Weight 125 lb 130 lb 128 lb 3 oz 131 lb 5 oz - Constitutional no acute distress (appears not to feel well) - *Routine HEENT Exam Head: Present: normocephalic Eye: Present: EOMI ENT: Present: mucous membranes moist - *Routine Neck Exam Present: supple. Absent: lymphadenopathy - *Routine Respiratory Exam Present: rhonchi, crackles (bilateral). Absent: wheezes - *Routine Cardiovascular Exam Present: tachycardia, irregularly irregular - *Routine Abdominal Exam Present: soft, normoactive bowel sounds. Absent: tenderness - *Routine Extremities Exam Absent: cyanosis, clubbing, edema - *Routine Skin Exam Present: warm. Absent: rash - *Routine Neurological
--- NOTE | 2020-11-25 08:42 | PC.NURSE ---
RN aware of elevated bp.
[2020-11-25 08:58] LABS: Lymphocytes % 4 % (10-50); Monocytes % 4 % (2-9); Neutrophils % 92 % (42-76); Platelet Estimate Normal; RBC Morphology Normal; Total Cells Counted 100
--- NOTE | 2020-11-25 09:38 | ECG_ITS ---
APPROVED REPORT Exam: Resting ECG HR:104 bpm ECG Measurements Heart Rate 104 AXES QRSd 72 QRS -19 QT 372 T 50 QTc 489 Conclusion Atrial fibrillation with rapid ventricular response with premature ventricular or aberrantly conducted complexes Septal infarct, age undetermined Abnormal ECG Electronically signed by : Amaury Ritter, 11/25/2020 19:21:03
--- NOTE | 2020-11-25 09:45 | PC.NURSE ---
ATTEMPTED TO ADMINISTER MORNING PO MEDS FOR MS DUPONT, WAS UNABLE TO ADMIN MEDS RELATED TO PT REFUSAL. MEDICATION WAS PLACED ON TONGUE BUT PT WOULD NOT FOLLOW DIRECTIONS TO SWALLOW. WILL REASSESS LATER IN SHIFT.
--- NOTE | 2020-11-25 10:02 | PC.NURSE ---
Addendum entered by Ole Rajput RN 11/25/20 10:39: UPDATED DR BURGOS BY PHONE ON PT STATUS AT TIME OF WRITING OF PREVIOUS NOTE Original Note: IV METOPROLOL ADMIN PER MD BURGOS. PT VITAL SIGNS. BP: 122/66 HR: 97 BPM (ECG SHOWS AFIB) 20 RESPIRATIONS PER MINUTE O2 SATURATION 91 ON BIPAP 100%
--- NOTE | 2020-11-25 11:56 | HMH.PULMPN ---
Internal Medicine - PN: Subj *Date: 11/25/20 *Time: 13:20 Interval history: No acute respiratory events overnight patient respiratory status slightly worsening yesterday. Patient also experienced A. fib RVR needing metoprolol. Hemodynamically stable. Exam - Constitutional Comment:: Patient in acute respiratory distress. - HENMT Exam HENMT: normocephalic, atraumatic - Neck Exam Neck:: thyroid normal, no lymphadenopathy - Respiratory Exam Comments: Bilateral coarse breath sounds with no audible wheeze. Unchanged from yesterday. Patient in severe respiratory distress. Unable to talk in full sentences. Patient on BiPAP support. - Cardiovascular Exam Cardiac:: S1, S2 - GI Exam GI:: soft, no hepatosplenomegaly - Skin Exam Skin: warm, no rash, dry - Neurological Exam Neurological: alert, awake - Extremities Exam Extremities: no cyanosis, no clubbing, no edema Assessment and Plan (1) COVID-19 virus detected Status: Acute Category: Medical Code(s): U07.1 - COVID-19 (2) Elevated troponin Status: Acute Category: Medical Code(s): R77.8 - Other specified abnormalities of plasma proteins (3) HCAP (healthcare-associated pneumonia) Status: Acute Category: Medical Code(s): J18.9 - Pneumonia, unspecified organism (4) HTN (hypertension) Status: Chronic Qualifiers: Hypertension type: unspecified Qualified Code(s): I10 - Essential (primary) hypertension Category: Medical Code(s): I10 - Essential (primary) hypertension (5) Renal insufficiency Status: Chronic Category: Medical Code(s): N28.9 - Disorder of kidney and ureter, unspecified (6) Hypoxia Status: Acute Category: Medical Code(s): R09.02 - Hypoxemia - Assessment and plan all Dx Assessment and Plan for all problems:: #Acute hypoxic respiratory failure: #COVID-19 pneumonia: #Healthcare associated pneumonia: 85-year-old female, unable to obtain prior respiratory history admitted with COVID-19 pneumonia needing high oxygen requirements since admission from high flow to BiPAP with no improvement has been receiving remdesivir and dexamethasone along with antibiotics that was initiated on ceftriaxone azithromycin, escalated to cefepime along with vancomycin and levofloxacin on 11/21/2020. CT chest without contrast performed on this admission with bilateral pulmonary infiltrates. BNP elevated at 2610 from admission. Blood cultures from admission negative. Sputum culture still pending. Admission COVID-19 PCR positive, other respiratory viral panel negative. Chest x-ray from today showed bilateral airspace disease slightly worsened from prior. Etiology of this patient unimproved respiratory failure can be multifactorial. Echocardiogram performed, poor windows however reported biatrial enlargement with EF of 50%. Septum intact with no evidence of shunt. Antibiotics were escalated to Vanco meropenem and levofloxacin on 11/24/2020 given worsening leukocytosis and febrile episodes Interval update: Patient respiratory status not improving, slightly worsened since yesterday. Patient has good response to diuretics with negative volume status for the last. However no improvement in her respiratory status. Leukocytosis continues to worsen. Cultures pending. Afebrile and hemodynamically stable in the last 24 hours. Blood cultures no growth so far. Patient experienced an episode of A. fib with RVR this morning needing metoprolol. Talk to patient's sister Ms. Lori Slade who is her healthcare surrogate at [phone] this morning and explained her regarding the current medical condition and the possible outcomes and plan of care management options including mechanical ventilation with intubation. She her complete understanding of the clinical situation and would like to change the patient CODE STATUS to DNR/DNI. We will continue noninvasive ventilatory support. Overall patient condition very critical with worsening respiratory failur
--- NOTE | 2020-11-25 13:30 | PC.NURSE ---
6427 - Received report from Frances Rajput RN @ this time
--- NOTE | 2020-11-25 13:57 | PC.NURSE ---
Vanco trough delayed @ this time d/t staff unable to obtain blood. Picc line being inserted @ this time, once placement is confirmed will obtain labs.
--- NOTE | 2020-11-25 14:35 | XR_ITS ---
PROCEDURE: XR CHEST PORTABLE Referring Doctor: Trent Polk Patient Age:85Y CLINICAL HISTORY: PICC Line placement COMPARISON: CR XR CHEST PORTABLE from 11/17/[address] CHEST WO CON from 11/17/2020 CR XR CHEST PORTABLE from 11/21/2020 CR XR CHEST PORTABLE from 11/23/2020 More so than the right upper lobe Diffuse low-density infiltrate is seen throughout the left lung most evident centrally involving both upper and lower lobe Mild cardiomegaly. FINDINGS: PICC line enters from the left arm passing through the left subclavian vein and SVC; with tip at SVC above the right atrium. Satisfactory positioning.. Today's film is more penetrated but we again see the diffuse extensive bilateral infiltrates a with involvement at the right lung more so than as previously noted the left The or patchy appearance infiltrates seen on earlier chest films has become more confluent. But overall I see no significant nor appreciable change or improvement since November 23 20 20. Appearance is very similar to that prior study The more confluent appearing airspace disease and infiltrate throughout the right lung most evident at the right lower lobe and extending into the more central portions of right upper lobe . Air bronchograms perhaps slightly more evident on the right with this more diffuse confluent infiltrate pattern T In the left lung diffuse lower density infiltrate is seen throughout upper and lower lobes. . IMPRESSION: PICC line in place satisfactory position. Diffuse bilateral infiltrates, overall more slight pronounced throughout the right lung than left Findings are similar to November 23. No appreciable improvement Dictated by: Beto Lopez MD 11/25/2020 15:45 Beot Lopez MD in [place] 11/25/2020 15:45
--- NOTE | 2020-11-25 14:55 | PC.NURSE ---
Received call that PICC line is in good placement.
--- NOTE | 2020-11-25 15:17 | PC.NURSE ---
Verified w/ L Rizwan that Cardizem, Meropenem and Vanco are compatible. 1510 - Vanco drawn from Picc and sent to lab, awaiting result prior to infusion of vanco
--- NOTE | 2020-11-25 15:51 | PC.NURSE ---
D/t no access, Cardizem gtt was not able to be started until 1510. Gtt started @ 5 mls/hr and continues to infuse. Rate ranging 90-110, BP stable. Remains in A-Fib on tely. Pt resting w/ no complaints voiced.
[2020-11-25 16:16] LABS: Vancomycin,Trough 11.2 ug/mL (5.0-10.0)
--- NOTE | 2020-11-25 16:28 | PC.NURSE ---
Addendum entered by Merlene Obrien RN 11/25/20 16:28: 1455 - Picc line placed to L upper arm by Romulo Bennett RN Original Note: Pt remains on BIPAP @ 100%. Sats maintaining > 90%. Resp ranging 22-28/min. Lungs coarse throughout all ramos. BIPAP has only been removed for short periods of time and for oral care to be provided. Pt does becomes extremely SOA w/ removal. Remains on cardizem gtt @ 5 mls/hr. A-Fib on tely, BP remains stable. Abdomen soft, non-tender w/ active BS in all quads. Noted that last BM was on 11/18 as shown by prior documentation. Chappell cath to drain at bedside w/ clear yellow urine noted. Chappell care performed this shift by staff. Pt is total care and requires turning and repositioning Q2H. Heels floating. Skin is loose and has scattered bruising d/t numerous sticks for blood draws. Pt is currently resting in bed w/ call best w/in reach. Bed safety in place. No needs voiced @ this time. Spoke w/ J Yang @ 1620, Verified that it is okay for 1300 dose of vanco to be given, 11.2 trough reported. States this dose does not have to be re-timed.
--- NOTE | 2020-11-25 16:55 | PC.NURSE ---
1645 - HR sustaining 110's & BP stable, cardizem gtt increased to 10 mls/hr
--- NOTE | 2020-11-25 17:38 | PC.NURSE ---
Oral care provided quickly. Pt was off BIPAP for 1 min at most, SPO2 dropped to 50% and BIPAP was placed back on pt. Pt tachypneic and tachycardic, as well as BP being elevated. Pt repositioned to aid w/ breathing. In 10 min pt has recovered to mid-high 80's. HR returning to 90's. Resp's currently 24. Pt is resting w/ eyes closed, will continue to monitor.
--- NOTE | 2020-11-25 18:51 | PC.NURSE ---
Addendum entered by Merlene Obrien RN 11/25/20 19:05: Updated family on plan of care as well. Original Note: Spoke w/ Pt's Karen GUTIÉRREZ to verify code status. Pt is a DNR/DNI, verified w/ M JOSÉ LUIS Givens @ [id number].
--- NOTE | 2020-11-25 19:05 | PC.NURSE ---
Cardizem gtt increased to 15 mls/hr
--- NOTE | 2020-11-25 23:08 | PC.NURSE ---
Pt has been restless and anxious. HR ranging 110s -130s. O2 sats 86%-89% on 100% Bipap. BP 161/65. Diltiazem gtt infusing @ 15 m/hr. notified. Ativan 0.5 mg IV Q4 hr prn ordered.
[2020-11-26] VITALS (16 sets, daily range): BP systolic 84–131; BP diastolic 29–79; PULSE 32–118; RESP 6–30; TEMP 36–36.6; O2SAT 60–96; BMI 23.6
--- NOTE | 2020-11-26 02:36 | PC.NURSE ---
Pt is alert to self and is less anxious. HR is 105. Diltiazem gtt infsing @ 15 ml/hr. BP 101/50. She remains on 100% Bipap with O2 sats 89-90%. Wheezing noted t/o lung ramos. Oral care provided as pt tolerates. Pt is not able to have Bipap mask off very long without desating. Even for brief time and non rebreather placed over mouth. F/C draining to bedside with yellow urine. Pt has not had BM this shift. Abdomen is distended. BS hypoactive. Pt turned and repositioned. Medications administered per mar. Will continue to monitor.
--- NOTE | 2020-11-26 02:58 | PC.NURSE ---
Diltiazem gtt titrated to 10 ml/hr.
--- NOTE | 2020-11-26 03:15 | PC.NURSE ---
Diltiazem gtt decreased to 5 ml/hr due to HR decreasing and BP declining.
--- NOTE | 2020-11-26 03:51 | ECG_ITS ---
APPROVED REPORT Exam: Resting ECG HR:95 bpm ECG Measurements Heart Rate 95 AXES QRSd 76 QRS -15 QT 378 T 113 QTc 475 Conclusion Accelerated Junctional rhythm Nonspecific ST and T wave abnormality Prolonged QT Abnormal ECG Electronically signed by : Amaury Ritter, 11/26/2020 08:19:26
--- NOTE | 2020-11-26 04:39 | PC.NURSE ---
Diltiazem gtt was turned off at 0327 after MAP of 60 noted BP 90/41. BP @ 0330 was 88/41. Pt was given NS 500 ml bolus. Pt was noted to be less responsive. Pt able to open eyes with tactile stimulation. 0332, BP 93/36 MAP 66. 0335 BP 92/42. MD Arango was notified and agreed to continue with 500 ml NS bolus. New orders: Start Levophed gtt if SBP less than 90. At 0425, BP 81/37. Levophed gtt was started at 0430 @ 1 mcg/min. 0436 BP 101/38. 0440 BP 92/35. 0450 BP 89/35. Levophed gtt titrated to 2 mcg/min. 0500 BP 94/36, HR 91, O2 95%, R 29. Karen GUTIÉRREZ notified of pt condition.
--- NOTE | 2020-11-26 06:47 | PC.NURSE ---
Pt is only responding to painful stimuli. Extremities are cool to touch. Levophed gtt infusing @ 8 mcg/min. BP is currently 116/34, HR 84. Family has been updated on pt status. POA states that she can not come in. Pt code status is DNR.
--- NOTE | 2020-11-26 08:38 | PC.NURSE ---
DURING REPORT THIS MORNING PT WAS ON THE LEVOPHED DRIP AT 8 MCG/MIN WITH A BP OF 109/34 AND HR 86. UNRESPONSIVE. BP CONTINUED TO DECLINE EVEN THOUGH WE CONTINUED TO INCREASE THE DRIP. AT O830 DRIP WAS MAX AT 30MCG/MIN. BP 85/35, HR 32-38. POA WAS NOTIFIED AND SO WAS PHYSICIAN HIDE PULLER. DR. SUNSHINE CALLED AND ORDERED CBC, BMP AND LACTIC ACID.
[2020-11-26 09:31] LABS: Basophils # 1.9 K/mm3 (0-0.2); Basophils % 4.3 % (0.1-2.0); Eosinophils # 0.2 K/mm3 (0.0-0.4); Eosinophils % 0.4 % (0.1-12.0); Hematocrit 33.4 % (37.0-47.0); Hemoglobin 8.9 g/dL (12.2-16.2); Lymphocytes # 0.1 K/mm3 (0.7-4.5); Lymphocytes % 0.1 % (10-50); Mean Corpuscular HGB Conc 26.6 g/dL (31.8-35.4); Mean Corpuscular Hemoglobin 28.6 pg (27.0-31.2); Mean Corpuscular Volume 107.6 fl (81-99); Mean Platelet Volume 9.7 fl (7.4-10.4); Monocytes # 1.4 K/mm3 (0.1-1.0); Monocytes % 3.3 % (1.7-9.3); Neutrophils # 39.5 K/mm3 (1.8-7.8); Neutrophils % 91.8 % (37.0-80.0); Platelet Count 260 K/mm3 (142-424); Red Cell Distribution Width 18.2 % (11.5-17.5)
[2020-11-26 09:32] LABS: Chloride 116 mmol/L (98-107)
[2020-11-26 09:35] LABS: Blood Urea Nitrogen 51 mg/dl (7-17); Carbon Dioxide 16 mmol/L (22.0-30.0); Potassium 7.4 mmoL/L (3.5-5.1); Sodium 151 mmol/L (136-145)
[2020-11-26 09:36] LABS: Anion Gap 26.4 mEq/L (5-15); Calcium 7.9 mg/dl (8.4-10.2); Glucose 22 mg/dl (74-100); MANUAL DIFFERENTIAL MANUAL DIFFERENTIAL (MANUAL DIFF)
[2020-11-26 09:42] LABS: Creatinine Clearance Estimated 16 mL/min (50-200); Estimated Glomerular Filt Rate 19 ml/min (>60); GFR (African American) 23 ML/MIN (>60)
[2020-11-26 09:57] LABS: Lactic Acid 15.8 mmol/L (0.7-2.1)
[2020-11-26 10:01] LABS: Eosinophils % 3 % (0-3); Lymphocytes % 2 % (10-50); Macrocytosis 2+; Monocytes % 8 % (2-9); Neutrophils % 87 % (42-76); Nucleated Red Blood Cells 2; Platelet Estimate Normal; RBC Morphology Normal; Total Cells Counted 100
[2020-11-26 10:02] LABS: Hypochromasia 2+
--- NOTE | 2020-11-26 10:16 | HMH.ACPN2 ---
Internal Medicine - PN: Subj *Date: 11/26/20 *Time: 10:16 Interval history: The patient had some agitation during the night and required some Ativan. I received a call around 830 that she had become bradycardic in the 30s. Her blood pressure was not responding to Levophed. Her electrolytes returned quite abnormal with elevated sodium and elevated potassium. Blood sugar was 22. White blood cell count was 43,000. Patient continued to deteriorate. She was pronounced at 0953. Exam Vital signs and Labs for Last 24 Hours: Temp Pulse Resp BP Pulse Ox 96.8 F L 74 24 94/40 L 60 L 11/26/20 07:34 11/26/20 07:34 11/26/20 07:34 11/26/20 07:34 11/26/20 07:34 Laboratory Results - last 24 hr 11/25/20 15:10: Vancomycin Trough 11.2 H 11/26/20 09:00: WBC 43.0 H* D, RBC 3.10 L, Hgb 8.9 L, Hct 33.4 L, MCV 107.6 H, MCH 28.6, MCHC 26.6 L, RDW 18.2 H, Plt Count 260, MPV 9.7, Neut % (Auto) 91.8 H, Lymph % (Auto) 0.1 L, [place] % (Auto) 3.3, Eos % (Auto) 0.4, Baso % (Auto) 4.3 H, Neut # (Auto) 39.5 H, Lymph # (Auto) 0.1 L, [place] # (Auto) 1.4 H, Eos # (Auto) 0.2, Baso # (Auto) 1.9 H, Total Counted 100, Neutrophils % (Manual) 87 H, Lymphocytes % (Manual) 2 L, Monocytes % (Manual) 8, Eosinophils % (Manual) 3, Nucleated RBCs 2, Platelet Estimate Normal, RBC Morphology Normal, Hypochromasia 2+, Macrocytosis 2+ 11/26/20 09:00: Sodium 151 H*, Potassium 7.4 H* D, Chloride 116 H, Carbon Dioxide 16 L D, Anion Gap 26.4 H, BUN 51 H D, Creatinine 2.40 H D, Estimated Creat Clear 16, Estimated GFR 19 L*, Est GFR ( Amer) 23 L D, Glucose 22 L*, Calcium 7.9 L 11/26/20 09:00: Lactate 15.8 H I & O for Last 24 hours: Intake & Output 11/23/20 11/24/20 11/25/20 11/26/20 11:59 11:59 11:59 11:59 Intake Total 320 / 320 2071 / 2071 1192 / 1192 370 / 370 Output Total 850 / 850 2575 / 2575 1800 / 1800 625 / 625 Balance -530 / -530 -504 / -504 -608 / -608 -255 / -255 Weight 130 lb 128 lb 3 oz 131 lb 5 oz 125 lb 1 oz Microbiology Reports for the Last 24 Hours: Microbiology 11/17/20 12:25 Sputum - Expectorated Sputum Gram Stain - Final 11/17/20 12:25 Sputum - Expectorated Sputum Sputum Culture - Final NO GROWTH AFTER 48 HOURS - Constitutional Comments: Pulseless and nonbreathing. Monitors her heart rate consistent with dying heart. Assessment and Plan (1) COVID-19 virus detected Status: Acute Category: Medical Code(s): U07.1 - COVID-19 (2) Elevated troponin Status: Acute Category: Medical Code(s): R77.8 - Other specified abnormalities of plasma proteins (3) HCAP (healthcare-associated pneumonia) Status: Acute Category: Medical Code(s): J18.9 - Pneumonia, unspecified organism (4) HTN (hypertension) Status: Chronic Qualifiers: Hypertension type: unspecified Qualified Code(s): I10 - Essential (primary) hypertension Category: Medical Code(s): I10 - Essential (primary) hypertension (5) Renal insufficiency Status: Chronic Category: Medical Code(s): N28.9 - Disorder of kidney and ureter, unspecified (6) Hypoxia Status: Acute Category: Medical Code(s): R09.02 - Hypoxemia - Assessment and plan all Dx Assessment and Plan for all problems:: The patient from COVID-19 pneumonia and multisystem organ failure.
--- NOTE | 2020-11-26 12:50 | PC.NURSE ---
PHYSICIAN [employer] ARRIVED AND WAS NOTIFIED OF CRITICAL LAB RESULTS. PT RECEIVED AN AMP OF D50 FOR LOW GLUCOSE AND A 200 ML IVF BOLUS WAS STARTED. LEVOPHED DRIP IS MAX AT 30 MCG/MIN WITH A BP 85/35. HR 34. VERY SHALLOW BREATHING 5-8/MIN. PT IS UNRESPONSIVE. AT 0950 PT SHOWED ASYSTOLE ON THE MONITOR. NO PALPABLE RADIAL PULSE. PHYSICIAN AT BEDSIDE WITH NURSE. TIME OF WAS CALLED AT 0953. WAS ALSO NOTIFIED. PT'S POA WAS NOTIFIED AND GAVE THE PHONE NUMBER TO THE HOME [facility]. LEVI WAS CONTACTED AT 1015. LEVI COORDINATOR WAS DARWIN QUIÑONEZ 2020 [id number]. PT WAS RULED OUT FOR DONATION. POST MORTEM CARE WAS COMPLETED. HOME ARRIVED AT 1235.
--- NOTE | 2020-11-28 21:30 | [facility].DCSUM ---
General - General Admission date:: 11/17/20 Discharge date: 11/26/20 HPI HPI: Ms. Barcenas is an 85yo female who was transported from [facility] with low oxygen saturations and fever. She had a covid test pending at the [facility] but was tested upon presentation to the ER and found to have Covid along with pneumonia. Her white blood cell count was elevated, her troponins were elevated as was her BNP. She had renal insufficiency. Her chest CT showed extensive bilateral pneumonia and a nodule in the right apex suspicious for neoplasm. She was started on levaquin and given dexamethasone and lasix in the ER. She was admitted for further evaluation and treatment. Hospital Course Hospital Course: The patient was admitted and started on Levaquin as well as dexamethasone and the Covid protocol. She was also given some Lasix. Patient's blood cultures showed no growth. Her sats began dropping therefore, her FiO2 was increased to 100%. She had some constipation and was given MiraLAX. She continued to feel poorly and her oxygen was low despite Vapotherm with 100% FiO2 and the use of a nonrebreather mask. She was changed to BiPAP and vancomycin and cefepime were added. She had a repeat chest x-ray showing marked progression of bilateral airspace disease and infiltrates. Her remdesivir was extended for another 5 days. She did not improve despite her antibiotic change. Pulmonology was consulted. He recommended obtaining a CTA as well as an echo and giving the patient 60 mg of IV Lasix for diuresis. She had a repeat chest x-ray showing slightly overall better expansion. The patient had an echo showing an EF of 50% with a small pericardial effusion. Her white count began increasing, therefore her cefepime was changed to meropenem and her blood cultures were repeated. Her BiPAP was on high settings and she was not able to be weaned to obtain a CT PE protocol. The patient began feeling worse. Her blood pressure and heart rate elevated and she went into A. fib with rapid ventricular response. She was given a dose of IV metoprolol. Diuresis did not improve her respiratory status. Her leukocytosis continued to worsen. The pipe welder did speak with the patient's sister who was her healthcare surrogate and explained the possible outcomes of her treatment plan including mechanical ventilation with intubation. She wanted to change the patient's CODE STATUS to a DNR/DNI. Pulmonology also wanted to initiate a full dose of anticoagulation as concern for PE and the fact that the patient was unable to do a CTA. She had a repeat chest x-ray on 1230 showing a PICC line in place and diffuse bilateral infiltrates more pronounced throughout the right lung than the left. There was no appreciable improvement. The patient began having some agitation requiring Ativan. Dr. Almeida received a call on 11/26/2020 around 8:30 AM that she had become bradycardic in the 30s. Her blood pressure was not responding to Levophed and her electrolytes returned quite abnormal with an elevated sodium and potassium. Her blood sugar was 22 and her white blood cell count was 43,000. She continued to deteriorate and was pronounced at 0953. She from COVID-19 pneumonia and multisystem organ failure. Objective Vital signs: Temp Pulse Resp BP Pulse Ox 96.9 F L 34 L 6 L 85/35 L 72 L 11/26/20 08:00 11/26/20 09:30 11/26/20 09:30 11/26/20 09:30 11/26/20 09:30 Narrative: - Constitutional no acute distress Comments: Gets confused at times but is able to answer questions - *Routine HEENT Exam Head: Present: normocephalic Eye: Present: EOMI, PERRL ENT: Present: mucous membranes dry - *Routine Neck Exam Present: supple. Absent: lymphadenopathy - *Routine Respiratory Exam Present: decreased breath sounds, rales (on the right) - *Routine Cardiovascular Exam Present: RRR, murmur - *Routine Abdomi
== END 2020-11-26 12:35 | disposition expired | DRG 177 ==
LOC: ER 02:02 → ICU 07:03
PROVIDERS: Internal Medicine Pulmonary Disease; Admitting Provider Family Medicine; Emergency Provider Emergency Medicine; PCP Family Medicine; Visit Provider Family Medicine
DX: U07.1 COVID-19 (principal); J12.82 Pneumonia due to coronavirus disease 2019; J96.01 Acute respiratory failure with hypoxia; I12.9 Hypertensive chronic kidney disease with stage 1 through stage 4 chronic kidney disease, or unspecified chronic kidney disease; N18.9 Chronic kidney disease, unspecified; Z87.891 Personal history of nicotine dependence; Z79.82 Long term (current) use of aspirin; Z79.899 Other long term (current) drug therapy; I48.91 Unspecified atrial fibrillation
CPT/HCPCS: 36569; 71045; 71250; 80048; 80053; 80202; 81001; 82803; 83605; 83880; 84484; 85007; 85025; 86328; 87040; 87070; 87086; 87205; 87581; 87633; 87798; 93005; 93306; 94640; 94660; 94760; 94761; 96365; 96375; 99285; C1751; J0692; J1956; J2185; J2405; J3370